=== PATIENT | female | born 1965 | race Caucasian/White ===

== ENCOUNTER 2018-07-28 11:23 | Emergency (ER) | payer MEDICARE, MEDICAID ==
[~2018-07-28] VITALS: Ht 170.2 cm; Wt 95.0 kg
--- NOTE | 2018-07-28 14:01 | NUR ---
Patient taken in bed to CT with records management technician.
--- NOTE | 2018-07-28 14:23 | NUR ---
pt returns from ct
[2018-07-28 17:55] LABS: BASOPHILS % (AUTO) 0.2 % (0-1); EOSINOPHILS # (AUTO) 0.2 X10'3 (0-0.9); LYMPHOCYTES % (AUTO) 32.1 % (21-51); MONOCYTES # (AUTO) 0.8 X10'3 (0-0.9)
[2018-07-28 17:56] LABS: EOSINOPHILS % (AUTO) 1.9 % (0-6); HEMATOCRIT 33.9 % (35.0-45.0); HEMOGLOBIN 11.3 g/dl (12.0-16.0); LYMPHOCYTES # (AUTO) 3.1 X10'3 (1.1-4.8); MEAN CORPUSCULAR HEMOGLOBIN 29.2 PG (27.0-31.0); MEAN CORPUSCULAR HGB CONC 33.2 g/dL (33.0-36.5); MEAN CORPUSCULAR VOLUME 87.8 FL (78-98); MEAN PLATELET VOLUME 6.7 FL (7.4-10.4); MONOCYTES % (AUTO) 8.4 % (2-12); NEUTROPHILS # (AUTO) 5.6 X10'3 (1.8-7.7); NEUTROPHILS % (AUTO) 57.4 % (42-75); PLATELET COUNT 583 X10'3 (140-440); RED BLOOD COUNT 3.86 X10'6 (4.20-5.60); RED CELL DISTRIBUTION WIDTH 16.9 % (11.5-14.5); WHITE BLOOD COUNT 9.7 X10'3 (4.5-11.0)
[2018-07-28 18:07] LABS: ALANINE AMINOTRANSFERASE 10 U/L (12-78); ALBUMIN 1.3 G/DL (3.4-5.0); ALBUMIN/GLOBULIN RATIO 0.3 (1.1-1.5); ALKALINE PHOSPHATASE 88 IU/L (46-116); ANION GAP 7 (8-16); ASPARTATE AMINO TRANSFERASE 25 U/L (10-37); BILIRUBIN,TOTAL 0.4 MG/DL (0.1-1.0); BLOOD UREA NITROGEN 12 MG/DL (7-18); BUN/CREATININE RATIO 17.6 (6.6-38.0); CALCIUM 8.8 MG/DL (8.5-10.1); CHLORIDE 105 MMOL/L (99-107); CREATININE 0.68 MG/DL (0.40-0.90); GLUCOSE 80 MG/DL (70-104); POTASSIUM 3.3 MMOL/L (3.5-5.1); SODIUM 139 MMOL/L (135-145); TOTAL CARBON DIOXIDE 27.5 MMOL/L (24-32); TOTAL PROTEIN 5.9 G/DL (6.4-8.2); eGFR > 90 ML/MIN
[2018-07-28] MEDS ORDERED: LIDOcaine 1% w/epiNEPHrine 1:200,000 30ml vial IM ONE (18:20)
[2018-07-28] MEDS ORDERED: LEVO500T89 PO (19:48)
[2018-07-28] MEDS ORDERED: levoFLOXACIN 250mg tablet PO ONE (19:55)
[2018-07-28 20:52] VITALS: BP 115/77
== END 2018-07-28 20:57 | disposition home or self-care (01) ==
LOC: ER 11:24
DX: S01.01XA Laceration without foreign body of scalp, initial encounter (principal); R18.8 Other ascites; L97.911 Non-pressure chronic ulcer of unspecified part of right lower leg limited to breakdown of skin; L97.921 Non-pressure chronic ulcer of unspecified part of left lower leg limited to breakdown of skin; Z79.899 Other long term (current) drug therapy; W06.XXXA Fall from bed, initial encounter; Y93.89 Activity, other specified; Y92.89 Other specified places as the place of occurrence of the external cause; Y99.9 Unspecified external cause status
CPT/HCPCS: 12001; 36415; 70450; 80053; 85025; 99285; J3490; 96372

== ENCOUNTER 2018-10-23 14:58 | Inpatient (IN) | payer MEDICARE, MEDICAID ==
[~2018-10-23] VITALS: Ht 170.2 cm; Wt 58.6 kg
--- NOTE | 2018-10-23 16:00 | NUR ---
PRESSURE ULCER PRESENT TO THE RIGHT INNER ANKLE
[2018-10-23] MEDS ORDERED: furosemide 10 MG/1 ML 10ml inj IV ONE (16:05)
[2018-10-23 16:40] LABS: BASOPHILS % (AUTO) 0.2 % (0-1); EOSINOPHILS % (AUTO) 0 % (0-6); HEMATOCRIT 41.7 % (35.0-45.0); HEMOGLOBIN 13.7 g/dl (12.0-16.0); LYMPHOCYTES # (AUTO) 0.6 X10'3 (1.1-4.8); MEAN CORPUSCULAR HGB CONC 32.8 g/dL (33.0-36.5); MEAN CORPUSCULAR VOLUME 85.2 FL (78-98); MEAN PLATELET VOLUME 6.9 FL (7.4-10.4); MONOCYTES # (AUTO) 0.1 X10'3 (0-0.9); MONOCYTES % (AUTO) 1.6 % (2-12); NEUTROPHILS # (AUTO) 8.2 X10'3 (1.8-7.7); NEUTROPHILS % (AUTO) 91.2 % (42-75); PLATELET COUNT 544 X10'3 (140-440); RED CELL DISTRIBUTION WIDTH 16.8 % (11.5-14.5)
[2018-10-23 16:55] LABS: ALANINE AMINOTRANSFERASE 11 U/L (12-78); ALBUMIN 1.4 G/DL (3.4-5.0); ALBUMIN/GLOBULIN RATIO 0.3 (1.1-1.5); ALKALINE PHOSPHATASE 100 IU/L (46-116); ANION GAP 9 (8-16); ASPARTATE AMINO TRANSFERASE 25 U/L (10-37); BILIRUBIN,TOTAL 0.4 MG/DL (0.1-1.0); BLOOD UREA NITROGEN 13 MG/DL (7-18); BUN/CREATININE RATIO 10.4 (6.6-38.0); CALCIUM 8.5 MG/DL (8.5-10.1); CHLORIDE 97 MMOL/L (99-107); CREATININE 1.25 MG/DL (0.40-0.90); GLUCOSE 86 MG/DL (70-104); POTASSIUM 4.4 MMOL/L (3.5-5.1); SODIUM 130 MMOL/L (135-145); TOTAL CARBON DIOXIDE 23.7 MMOL/L (24-32); TOTAL PROTEIN 6.4 G/DL (6.4-8.2); eGFR 45 ML/MIN
[2018-10-23 17:00] LABS: LACTIC SEPSIS 3.1 MMOL/L (0.4-2.0)
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
[2018-10-23 17:13] LABS: CLARITY,URINE CLOUDY (Clear); COLOR,URINE AMBER (Yellow); GLUCOSE, URINE NEGATIVE (Neg); KETONES,URINE TRACE mg/dl (Neg); LEUKOCYTE ESTERASE ,URINE TRACE (Neg); NITRITES, URINE POSITIVE (Neg); OCCULT BLOOD,URINE NEGATIVE (Neg); PH,URINE 5.5 (4.8-8.0); PROTEIN,URINE TRACE mg/dl (Neg)
[2018-10-23 17:15] LABS: UA COLLECTION TYPE STRAIGHT CATH
[2018-10-23 17:25] LABS: PLATELET ESTIMATE INCREASED; TOTAL CELLS COUNTED 100
[2018-10-23 17:26] LABS: ANISOCYTOSIS 1+
[2018-10-23 17:27] LABS: TOXIC VACUOLATION 1+
[2018-10-23 17:29] LABS: SQUAMOUS EPITHELIAL CELL,UR MANY /LPF (FEW)
[2018-10-23 17:30] LABS: COARSE GRANULAR CAST 0-3 /LPF (NEGATIVE)
[2018-10-23 17:32] LABS: BACTERIA,URINE 4+ /HPF (Neg); MUCUS STRANDS NONE SEEN /LPF (Neg); RBC,URINE 0-2 /HPF (0-2); TRANSITIONAL EPI CELLS,URINE FEW /HPF
[2018-10-23 17:33] LABS: CAL OXALATE CRYSTALS 1+ /HPF (NEGATIVE); RENAL CELLS, URINE FEW /HPF
[2018-10-23] MEDS ORDERED: vancomycin/NS 1 GM ADD-VANTAGE 250 ML IV ONE (17:35)
[2018-10-23] MEDS ORDERED: piperacillin/tazo 3.375gm/50ml 50 ML IV ONE (17:35)
[2018-10-23 17:39] LABS: AMMONIA < 10 UMOL/L (11-32)
[2018-10-23] MEDS ORDERED: morphine 4 MG/ML inj SYRINge IV ONE (18:25)
[2018-10-23] MEDS ORDERED: normal saline 1000ML IV soln IVB ONE ×2 (18:25→19:55)
[2018-10-23] MEDS ORDERED: ondansetron/PF 4mg/2ml inj IV ONE (18:25)
[2018-10-23] MEDS ORDERED: diltiazem 5mg/ml 5ml inj. IV ONE (19:10)
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
--- NOTE | 2018-10-23 20:02 | NUR ---
After consulting primary RN, Cardizem not administered at this time due to pt BP of 99/68.
[2018-10-23] MEDS ORDERED: acetaminophen 325mg tablet PO PRN (20:05)
[2018-10-23] MEDS ORDERED: mag hydrox/Alum hydrox/simeth 30ml oral suspension PO PRN (20:05)
[2018-10-23 20:33] LABS: ETHANOL < 0.010 GM/DL (0.0-0.010)
--- NOTE | 2018-10-23 20:53 | NUR ---
Spoke with KEILY Loja and Hospitalist Janene regarding IV Cardizem order (see emar). Updated on hr 114, BP 108/80. Hold Cardizem IVP at this time.
[2018-10-23 21:15] VITALS: BP 100/69
[2018-10-23 23:00] VITALS: BP 99/69
[2018-10-24] VITALS (23 sets, daily range): BP systolic 71–117; BP diastolic 42–84
[2018-10-24 05:46] LABS: BASOPHILS % (AUTO) 0.4 % (0-1); EOSINOPHILS % (AUTO) 0 % (0-6); HEMATOCRIT 38.4 % (35.0-45.0); HEMOGLOBIN 12.6 g/dl (12.0-16.0); LYMPHOCYTES # (AUTO) 0.8 X10'3 (1.1-4.8); LYMPHOCYTES % (AUTO) 7.8 % (21-51); MEAN CORPUSCULAR HEMOGLOBIN 28.3 PG (27.0-31.0); MEAN CORPUSCULAR HGB CONC 32.9 g/dL (33.0-36.5); MEAN CORPUSCULAR VOLUME 86.1 FL (78-98); MEAN PLATELET VOLUME 7.5 FL (7.4-10.4); MONOCYTES # (AUTO) 0.3 X10'3 (0-0.9); MONOCYTES % (AUTO) 2.5 % (2-12); NEUTROPHILS # (AUTO) 9.3 X10'3 (1.8-7.7); NEUTROPHILS % (AUTO) 89.3 % (42-75); PLATELET COUNT 463 X10'3 (140-440); RED BLOOD COUNT 4.46 X10'6 (4.20-5.60); RED CELL DISTRIBUTION WIDTH 17.3 % (11.5-14.5); WHITE BLOOD COUNT 10.4 X10'3 (4.5-11.0)
--- NOTE | 2018-10-24 06:20 | NUR ---
Patient in room PCU 3026. I have received report from CHANCE Amor and had the opportunity to ask questions and assume patient care. Pt is sleeping. Will continue to monitor.
[2018-10-24 06:26] LABS: ALANINE AMINOTRANSFERASE 11 U/L (12-78); ALBUMIN 1.2 G/DL (3.4-5.0); ALBUMIN/GLOBULIN RATIO 0.3 (1.1-1.5); ALKALINE PHOSPHATASE 86 IU/L (46-116); ANION GAP 8 (8-16); ASPARTATE AMINO TRANSFERASE 35 U/L (10-37); BILIRUBIN,TOTAL 0.3 MG/DL (0.1-1.0); BLOOD UREA NITROGEN 15 MG/DL (7-18); BUN/CREATININE RATIO 10.3 (6.6-38.0); CALCIUM 8.7 MG/DL (8.5-10.1); CHLORIDE 98 MMOL/L (99-107); CREATININE 1.45 MG/DL (0.40-0.90); GLUCOSE 91 MG/DL (70-104); POTASSIUM 4.9 MMOL/L (3.5-5.1); SODIUM 130 MMOL/L (135-145); TOTAL CARBON DIOXIDE 23.6 MMOL/L (24-32); TOTAL PROTEIN 5.8 G/DL (6.4-8.2); eGFR 38 ML/MIN
[2018-10-24] MEDS: enoxaparin 30mg/0.3ml syringe SUBCUT SCH ×2 (08:00→08:06)
[2018-10-24] MEDS ORDERED: vancomycin/NS 1 GM ADD-VANTAGE 250 ML IV SCH (08:00)
[2018-10-24] MEDS: CefTRIAXone/D5W-Rocephin 1gm 50 ML IV SCH (08:04)
[2018-10-24] MEDS ORDERED: NO HOME MEDS (08:40)
[2018-10-24] MEDS: VANCOmycin 1250MG/NS 250ml Bag 250 ML IV SCH ×2 (09:37→20:57)
--- NOTE | 2018-10-24 10:27 | NUR ---
Paracentesis canceled by Dr Mercedes stating that patient is not stable enough at this time for Paracentesis Nursing staff informed
--- NOTE | 2018-10-24 10:41 | NUR ---
PRESSURE ULCER EDUCATION: DEFINITION: A pressure ulcer is an area of skin that breaks down when you stay in one position too long. The constant pressure against the skin reduces the blood flow to that area and the affected tissue dies. CAUSES: "Being bedridden or in a wheelchair "Fragile skin "Having a chronic condition, such as diabetes or vascular disease "Inability to move certain parts of your body without assistance "Older age "Incontinence of urine or stool SYMPTOMS: "A reddened area that DOES NOT turn white when pressed on - this can be the beginning of a pressure ulcer "A blister, deep sore or a crater - these can be advanced pressure ulcers FIRST AID: "Relieve the pressure on this area "Keep the area clean and dry "Call your primary doctor if you see any of the above symptoms "DO NOT massage the area "DO NOT use a donut shaped or ring shaped pillow- these actually interfere with the blood flow and cause complications PREVENTION: "Check for pressure ulcers everyday "Change position at least every two hours to relieve pressure "Use items that help relieve pressure- pillows, sheepskin, foam padding, and powders. "Keep skin clean and dry "Eat healthy well balanced meals "Exercise daily IF YOU SEE ANY OF THESE SYMPTOMS WHILE IN THE HOSPITAL - TELL YOUR NURSE IMMEDIATELY. IF YOU SEE ANY OF THESE SYMPTOMS WHILE AT HOME OR HAVE ANY QUESTIONS OR CONCERNS ABOUT PRESSURE ULCERS - CALL YOUR PRIMARY DOCTOR IMMEDIATELY. WOUND INFECTION EDUCATION PROVIDED BY WOUND CARE 1. Patient instructed to call their primary doctor, or go the ED immediately if any of the following symptoms occur: * Increased pain in wound * Increase in drainage from the wound * Redness in the skin surrounding the wound * Warmth in the skin surrounding the wound * Bleeding from the wound * Temperature of 101 or greater 2. If any of these occur while in the hospital tell a nurse immediately. Addendum: 10/24/18 at 1042 by Shannan Viramontes RN Amended: Links added.
--- NOTE | 2018-10-24 10:56 | NUR ---
Sent to Dr Mercedes PAGER ID: [phone] MESSAGE: RE: Saray Ferraro [id number]. Pt c/o pain. Only PRN ordered is Tylenol. Please advise. -Maame [phone]
[2018-10-24] MEDS: acetaminophen 325mg tablet PO PRN ×2 (11:46→22:12)
--- NOTE | 2018-10-24 12:31 | NUR ---
Sent to Dr Mercedes PAGER ID: [phone] MESSAGE: RE: Saray Sauer [id number]. FYI: BP 88/60. Asymptomatic. Getting Echo right now. -Maame [phone]
[2018-10-24] MEDS ORDERED: normal saline 1000ml 1,000 ML IV SCH (12:50)
[2018-10-24] MEDS ORDERED: albumin (Human) 5% 250ml 250 ML IV ONE ×2 (12:50→22:55)
[2018-10-24] MEDS ORDERED: albumin (human) 25% 100 ML IV solution IV ONE ×4 (13:05→17:20)
[2018-10-24] MEDS: albumin (human) 25% 100 ML IV solution IV SCH ×2 (14:00→21:22)
--- NOTE | 2018-10-24 14:41 | NUR ---
Sent to Dr Mercedes PAGER ID: [phone] MESSAGE: RE: Saray Ferraro [id number]. Do you want both bottles of albumin, or one now and one after 6 hours? Please call for clarification. -Maame [phone]
--- NOTE | 2018-10-24 15:07 | NUR ---
Malnutrition consult: Pt admit w/ increased SOB, sepsis, L leg cellulitis noted to have large ascites and hx etoh cirrhosis. Sober [address] MD note[address] shows possible cholelithiasis. Rob 12 w/ healing coccyx wound and RLE calf wound cellulitis noted. Pt advanced to regular diet w/ PO 25% avg first meal today. RD attempts to see pt x2 but first visit pt getting echo and second visit RN's working w/ pt during hypotension period. Pt will need high protein ed regardless of malnutrition criteria prior to d/c. At this time pt has BLE +3 edema, mild weakness, scaled wt 220# healthy wt, and only one meal PO so far this admit. Malnutrition trigger pending further PO hx and RD visit once stable this admit for more accurate hx. Will continue to monitor. Rec: 1. continue regular diet 2. monitor for ONS needs 3. high protein ed prior to d/c 4. MVI for wound healing 5. routine bowel care Addendum: 10/24/18 at [address] Amended: Links added.
--- NOTE | 2018-10-24 16:35 | NUR ---
Sent to Dr Mercedes PAGER ID: [phone] MESSAGE: RE: Saray Ferraro [id number]. CRITICAL RESULTS: anaerobic blood specimen drawn from Right arm 2 days ago is positive for gram + cocci in pairs and chains. -Maame [phone]
[2018-10-24] MEDS ORDERED: morphine 2 MG/ML inj. syringe IV ONE (17:15)
[2018-10-24] MEDS: midodrine 5mg tablet PO SCH ×2 (17:24→23:34)
--- NOTE | 2018-10-24 18:00 | NUR ---
Patient in room PCU 3012. I have received report from Maame FLETCHER and had the opportunity to ask questions and assume patient care.
[2018-10-24 18:22] LABS: BFAPPEAR CLEAR
[2018-10-24 18:23] LABS: BF MESOTHELIAL CELLS OCCASIONAL; BF RBC COUNT 81 /CU MM; BF WBC COUNT 41 /CU MM (0-1000); BFCOLOR YELLOW; BFVOLUME 60 ML; LYMPHOCYTES,BODY FLUID 82 %; MONOCYTES,BODY FLUID 18 %; NEUTROPHILS,BODY FLUID 0 %
[2018-10-24 18:24] LABS: OTHER CELLS,BODY FLUID MACROPHAGES
--- NOTE | 2018-10-24 18:30 | NUR ---
Patient in room PCU 3012. I have received report from Maame FLETCHER and had the opportunity to ask questions and assume patient care with Tracy FLETCHER.
--- NOTE | 2018-10-24 18:46 | NUR ---
PAGER ID: [phone] MESSAGE: [phone] Saray Ferraro. Still has 2 bottles of albumin to give and an order for Q6 Albumin starting today at 1999, would you like to change the time? Tracy FLETCHER 0310
--- NOTE | 2018-10-24 18:49 | NUR ---
Problems reprioritized. Patient report given, questions answered & plan of care reviewed with CHANCE Leal and CHANCE Molina.
[2018-10-24] MEDS: lactobacillus rhamnosus 10,000 MMU CELLS/CAPSULE PO SCH (19:34)
[2018-10-24] MEDS: rifaximin 550mg tablet PO SCH (19:34)
--- NOTE | 2018-10-24 21:17 | NUR ---
Spoke with April re SBP in the 70s. orders to give albumin now that we were going to give in 6 hours.
[2018-10-24 22:06] LABS: ALANINE AMINOTRANSFERASE 11 U/L (12-78); ALBUMIN 2.6 G/DL (3.4-5.0); ALBUMIN/GLOBULIN RATIO 1.1 (1.1-1.5); ALKALINE PHOSPHATASE 50 IU/L (46-116); ANION GAP 4 (8-16); ASPARTATE AMINO TRANSFERASE 18 U/L (10-37); BILIRUBIN,TOTAL 0.4 MG/DL (0.1-1.0); BLOOD UREA NITROGEN 18 MG/DL (7-18); BUN/CREATININE RATIO 11.5 (6.6-38.0); CALCIUM 8.2 MG/DL (8.5-10.1); CHLORIDE 99 MMOL/L (99-107); CREATININE 1.56 MG/DL (0.40-0.90); GLUCOSE 116 MG/DL (70-104); POTASSIUM 4.4 MMOL/L (3.5-5.1); SODIUM 129 MMOL/L (135-145); TOTAL CARBON DIOXIDE 25.7 MMOL/L (24-32); eGFR 35 ML/MIN
--- NOTE | 2018-10-24 22:53 | NUR ---
ROSELINE April Britany notified about blood pressure in the 70s. Communicated about giving another albumin dose and will continue to monitor and contact MP as needed.
[2018-10-25] VITALS (16 sets, daily range): BP systolic 70–94; BP diastolic 42–64
[2018-10-25] MEDS: albumin (human) 25% 100 ML IV solution IV SCH ×4 (02:00→19:43)
--- NOTE | 2018-10-25 03:17 | NUR ---
Notified MP Britany about blood pressure dropping into the SBPs of 70s, left a message and now waiting for a call back.
--- NOTE | 2018-10-25 03:21 | NUR ---
ROSELINE Garg called back stating upper SBP of 70s is okay. Will continue to monitor the patient. Addendum: 10/25/18 at 0325 by Tracy Naylor RN For clarification, notify when patient is in low SBP 70s and symptomatic.
[2018-10-25] MEDS: acetaminophen 325mg tablet PO PRN (04:27)
[2018-10-25 05:22] LABS: BASOPHILS % (AUTO) 0.3 % (0-1); EOSINOPHILS % (AUTO) 0.4 % (0-6); HEMATOCRIT 25.7 % (35.0-45.0); HEMOGLOBIN 8.8 g/dl (12.0-16.0); LYMPHOCYTES # (AUTO) 0.7 X10'3 (1.1-4.8); LYMPHOCYTES % (AUTO) 7.9 % (21-51); MEAN CORPUSCULAR HEMOGLOBIN 28.8 PG (27.0-31.0); MEAN CORPUSCULAR HGB CONC 34.1 g/dL (33.0-36.5); MEAN CORPUSCULAR VOLUME 84.6 FL (78-98); MEAN PLATELET VOLUME 7.4 FL (7.4-10.4); MONOCYTES # (AUTO) 0.2 X10'3 (0-0.9); MONOCYTES % (AUTO) 2.4 % (2-12); NEUTROPHILS # (AUTO) 7.6 X10'3 (1.8-7.7); PLATELET COUNT 264 X10'3 (140-440); RED BLOOD COUNT 3.04 X10'6 (4.20-5.60); WHITE BLOOD COUNT 8.5 X10'3 (4.5-11.0)
[2018-10-25 05:53] LABS: ALANINE AMINOTRANSFERASE 9 U/L (12-78); ALBUMIN 2.7 G/DL (3.4-5.0); ALBUMIN/GLOBULIN RATIO 1.4 (1.1-1.5); ALKALINE PHOSPHATASE 41 IU/L (46-116); ANION GAP 8 (8-16); ASPARTATE AMINO TRANSFERASE 16 U/L (10-37); BILIRUBIN,TOTAL 0.4 MG/DL (0.1-1.0); BLOOD UREA NITROGEN 19 MG/DL (7-18); BUN/CREATININE RATIO 12.8 (6.6-38.0); CALCIUM 8.2 MG/DL (8.5-10.1); CHLORIDE 99 MMOL/L (99-107); CREATININE 1.49 MG/DL (0.40-0.90); GLUCOSE 92 MG/DL (70-104); POTASSIUM 4.1 MMOL/L (3.5-5.1); SODIUM 131 MMOL/L (135-145); TOTAL CARBON DIOXIDE 24.5 MMOL/L (24-32); TOTAL PROTEIN 4.7 G/DL (6.4-8.2); eGFR 37 ML/MIN
--- NOTE | 2018-10-25 06:09 | NUR ---
Problems reprioritized. Patient report given, questions answered & plan of care reviewed with Maame RN.
--- NOTE | 2018-10-25 06:10 | NUR ---
Problems reprioritized. Patient report given, questions answered & plan of care reviewed with Maame RN.
--- NOTE | 2018-10-25 06:10 | NUR ---
[place] Documentation: I have reviewed and agree with all interventions, assessments performed and documented by Tracy Gatica.
--- NOTE | 2018-10-25 06:36 | NUR ---
Patient in room PCU 3012. I have received report from Tracy RN and CHANCE Leal and had the opportunity to ask questions and assume patient care. Pt is sleeping. Will continue to monitor.
[2018-10-25] MEDS: midodrine 5mg tablet PO SCH ×3 (07:50→21:23)
[2018-10-25] MEDS: CefTRIAXone/D5W-Rocephin 1gm 50 ML IV SCH (07:50)
[2018-10-25] MEDS: lactobacillus rhamnosus 10,000 MMU CELLS/CAPSULE PO SCH ×2 (07:50→19:47)
[2018-10-25] MEDS: enoxaparin 30mg/0.3ml syringe SUBCUT SCH (07:51)
[2018-10-25] MEDS: VANCOmycin 1250MG/NS 250ml Bag 250 ML IV SCH ×2 (07:53→21:14)
[2018-10-25] MEDS: rifaximin 550mg tablet PO SCH ×2 (07:53→21:23)
[2018-10-25] MEDS ORDERED: albumin (Human) 5% 250ml 250 ML IV ONE (09:35)
[2018-10-25] MEDS ORDERED: pneumococcal 23-VAL P-sac vacc 25 mcg/0.5ml vial IMVAC ONE (10:00)
--- NOTE | 2018-10-25 10:58 | NUR ---
F/u: Pt has severe weakness and severe edema currently in addition to low P0 25% avg meals so far this admit. Qualifies for severe malnutrition at this time; MD notified. Pt remains hypotensive and possible ICU admit if does not improve per MD note. High protein ed deferred until pt more stable. Ensure Enlive TIDWM was added for additional protein/kcal needs; MD and dietary notified. Will continue to monitor. Rec: 1. continue regular diet 2. ensure enlive TIDWM 3. high protein ed prior to d/c once stable 4. MVI for wound healing 5. routine bowel care Addendum: 10/25/18 at [address] Amended: Links added. Addendum: 10/25/18 at [address] F/u: Pt has severe weakness and severe edema currently in addition to low P0 25% avg meals so far this admit. Qualifies for severe malnutrition at this time; MD notified. Pt remains hypotensive and possible ICU admit if does not improve per MD note. High protein ed deferred until pt more stable. Ensure Enlive TIDWM was added for additional protein/kcal needs; MD and dietary notified. Will continue to monitor. Rec: 1. continue regular diet 2. ensure enlive TIDWM 3. high protein/malnut ed prior to d/c once stable 4. MVI for wound healing 5. routine bowel care
[2018-10-25] MEDS: lactose-reduced food (Ensure Enlive) - 237ml bottle PO SCH ×2 (13:00→18:00)
--- NOTE | 2018-10-25 14:03 | NUR ---
Sent to Dr Mercedes PAGER ID: [phone] MESSAGE: RE: Saray Ferraro [id number]. Can we please get a child protective services social worker consult order? She does not want to return to her previous living situation. -Maame [phone]
--- NOTE | 2018-10-25 18:33 | NUR ---
Problems reprioritized. Patient report given, questions answered & plan of care reviewed with CHANCE Lujan.
[2018-10-25] MEDS ORDERED: VANCOMYCIN LEVEL IV ONE (19:30)
--- NOTE | 2018-10-25 23:49 | NUR ---
Patient in room PCU 3012. I have received report from Maame FLETCHER and had the opportunity to ask questions and assume patient care. Checked on patient, she is in bed, talking to her son on the phone. Will continue to monitor.
[2018-10-26] MEDS: albumin (human) 25% 100 ML IV solution IV SCH ×4 (01:50→20:19)
[2018-10-26 02:00] VITALS: BP 90/65
[2018-10-26] MEDS: acetaminophen 325mg tablet PO PRN ×2 (02:05→15:07)
--- NOTE | 2018-10-26 02:18 | NUR ---
Left message with wound care requesting air bed. Turning patient qh and it is not helping with the pain on her coccyx.
[2018-10-26 05:27] LABS: BASOPHILS % (AUTO) 0.6 % (0-1); EOSINOPHILS # (AUTO) 0.1 X10'3 (0-0.9); EOSINOPHILS % (AUTO) 1.4 % (0-6); HEMATOCRIT 27.9 % (35.0-45.0); HEMOGLOBIN 9.5 g/dl (12.0-16.0); LYMPHOCYTES # (AUTO) 0.6 X10'3 (1.1-4.8); LYMPHOCYTES % (AUTO) 7.8 % (21-51); MEAN CORPUSCULAR HEMOGLOBIN 28.7 PG (27.0-31.0); MEAN CORPUSCULAR HGB CONC 33.9 g/dL (33.0-36.5); MEAN CORPUSCULAR VOLUME 84.8 FL (78-98); MEAN PLATELET VOLUME 8.1 FL (7.4-10.4); MONOCYTES # (AUTO) 0.3 X10'3 (0-0.9); MONOCYTES % (AUTO) 4.1 % (2-12); NEUTROPHILS # (AUTO) 6.9 X10'3 (1.8-7.7); NEUTROPHILS % (AUTO) 86.1 % (42-75); PLATELET COUNT 194 X10'3 (140-440); RED BLOOD COUNT 3.29 X10'6 (4.20-5.60); RED CELL DISTRIBUTION WIDTH 16.7 % (11.5-14.5)
[2018-10-26 05:49] LABS: ALANINE AMINOTRANSFERASE 8 U/L (12-78); ALBUMIN 2.9 G/DL (3.4-5.0); ALBUMIN/GLOBULIN RATIO 1.5 (1.1-1.5); ALKALINE PHOSPHATASE 89 IU/L (46-116); ANION GAP 5 (8-16); ASPARTATE AMINO TRANSFERASE 12 U/L (10-37); BILIRUBIN,TOTAL 0.5 MG/DL (0.1-1.0); BLOOD UREA NITROGEN 18 MG/DL (7-18); BUN/CREATININE RATIO 14.2 (6.6-38.0); CALCIUM 8.8 MG/DL (8.5-10.1); CHLORIDE 101 MMOL/L (99-107); CREATININE 1.27 MG/DL (0.40-0.90); GLUCOSE 85 MG/DL (70-104); POTASSIUM 3.6 MMOL/L (3.5-5.1); SODIUM 131 MMOL/L (135-145); TOTAL CARBON DIOXIDE 25.5 MMOL/L (24-32); TOTAL PROTEIN 4.8 G/DL (6.4-8.2); eGFR 44 ML/MIN
--- NOTE | 2018-10-26 06:28 | NUR ---
Problems reprioritized. Patient report given, questions answered & plan of care reviewed with Geraldine FLETCHER and Marvin FLETCHER.
--- NOTE | 2018-10-26 06:29 | NUR ---
Patient in room PCU 3012. I have received report from Le FLETCHER and had the opportunity to ask questions and assume patient care.
[2018-10-26 07:00] VITALS: BP 87/64
[2018-10-26] MEDS ORDERED: VANCOMYCIN LEVEL IV ONE (07:30)
[2018-10-26] MEDS: lactose-reduced food (Ensure Enlive) - 237ml bottle PO SCH ×3 (08:00→18:00)
[2018-10-26] MEDS: enoxaparin 30mg/0.3ml syringe SUBCUT SCH (08:38)
[2018-10-26] MEDS: midodrine 5mg tablet PO SCH ×3 (08:39→23:18)
[2018-10-26] MEDS: CefTRIAXone/D5W-Rocephin 1gm 50 ML IV SCH (08:41)
[2018-10-26] MEDS: lactobacillus rhamnosus 10,000 MMU CELLS/CAPSULE PO SCH ×2 (08:41→20:17)
[2018-10-26] MEDS: rifaximin 550mg tablet PO SCH ×2 (08:41→20:17)
[2018-10-26 11:00] VITALS: BP 100/71
[2018-10-26 15:00] VITALS: BP 98/70
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
[2018-10-26 18:18] VITALS: BP 103/70
--- NOTE | 2018-10-26 18:25 | NUR ---
Patient in room PCU 3012. I have received report from Geraldine and had the opportunity to ask questions and assume patient care.
--- NOTE | 2018-10-26 18:27 | NUR ---
Problems reprioritized. Patient report given, questions answered & plan of care reviewed with Bradley FLETCHER.
[2018-10-26] MEDS ORDERED: vancomycin inj. 750 MG in normal saline 250ml IV soln 250 ML IV SCH (20:00)
[2018-10-26 22:00] VITALS: BP 107/77
[2018-10-27] VITALS (8 sets, daily range): BP systolic 102–118; BP diastolic 71–87
[2018-10-27] MEDS: albumin (human) 25% 100 ML IV solution IV SCH ×3 (01:31→20:56)
[2018-10-27] MEDS: acetaminophen 325mg tablet PO PRN ×2 (03:30→13:52)
[2018-10-27 06:14] LABS: BASOPHILS % (AUTO) 0.2 % (0-1); EOSINOPHILS % (AUTO) 0.3 % (0-6); HEMATOCRIT 29.7 % (35.0-45.0); HEMOGLOBIN 9.9 g/dl (12.0-16.0); LYMPHOCYTES # (AUTO) 0.6 X10'3 (1.1-4.8); MEAN CORPUSCULAR HEMOGLOBIN 28.1 PG (27.0-31.0); MEAN CORPUSCULAR HGB CONC 33.4 g/dL (33.0-36.5); MEAN CORPUSCULAR VOLUME 84.1 FL (78-98); MEAN PLATELET VOLUME 8.3 FL (7.4-10.4); MONOCYTES # (AUTO) 0.8 X10'3 (0-0.9); MONOCYTES % (AUTO) 7.5 % (2-12); PLATELET COUNT 165 X10'3 (140-440); RED BLOOD COUNT 3.52 X10'6 (4.20-5.60); RED CELL DISTRIBUTION WIDTH 16.8 % (11.5-14.5); WHITE BLOOD COUNT 10.4 X10'3 (4.5-11.0)
--- NOTE | 2018-10-27 06:29 | NUR ---
Problems reprioritized. Patient report given, questions answered & plan of care reviewed with
[2018-10-27 06:34] LABS: ALANINE AMINOTRANSFERASE 12 U/L (12-78); ALBUMIN/GLOBULIN RATIO 1.5 (1.1-1.5); ALKALINE PHOSPHATASE 138 IU/L (46-116); ANION GAP 7 (8-16); ASPARTATE AMINO TRANSFERASE 21 U/L (10-37); BILIRUBIN,TOTAL 0.5 MG/DL (0.1-1.0); BLOOD UREA NITROGEN 12 MG/DL (7-18); BUN/CREATININE RATIO 11.9 (6.6-38.0); CALCIUM 8.4 MG/DL (8.5-10.1); CHLORIDE 104 MMOL/L (99-107); CREATININE 1.01 MG/DL (0.40-0.90); GLUCOSE 104 MG/DL (70-104); POTASSIUM 3.5 MMOL/L (3.5-5.1); SODIUM 135 MMOL/L (135-145); TOTAL CARBON DIOXIDE 24.1 MMOL/L (24-32); eGFR 58 ML/MIN
--- NOTE | 2018-10-27 06:43 | NUR ---
Patient in room PCU 3012. I have received report from Bradley FLETCHER and had the opportunity to ask questions and assume patient care.
[2018-10-27] MEDS: CefTRIAXone/D5W-Rocephin 1gm 50 ML IV SCH (07:30)
[2018-10-27] MEDS: midodrine 5mg tablet PO SCH ×2 (07:30→16:40)
[2018-10-27] MEDS: rifaximin 550mg tablet PO SCH ×2 (07:30→20:58)
[2018-10-27] MEDS: lactobacillus rhamnosus 10,000 MMU CELLS/CAPSULE PO SCH ×2 (07:30→20:57)
[2018-10-27] MEDS: enoxaparin 30mg/0.3ml syringe SUBCUT SCH (07:31)
[2018-10-27] MEDS: lactose-reduced food (Ensure Enlive) - 237ml bottle PO SCH ×3 (08:00→18:00)
[2018-10-27] MEDS ORDERED: albumin (human) 25% 100 ML IV solution IV ONE (15:15)
[2018-10-27] MEDS: HYDROmorphone inj. 0.5 MG/0.5 ML DISP.SYRIN IV PRN ×2 (16:45→22:15)
--- NOTE | 2018-10-27 18:30 | NUR ---
Patient in room PCU 3012. I have received report from CHANCE Ramires and had the opportunity to ask questions and assume patient care.
--- NOTE | 2018-10-27 18:30 | NUR ---
Problems reprioritized. Patient report given, questions answered & plan of care reviewed with CHANCE Ramires. Addendum: 10/28/18 at 0704 by Jazzy Alejandro RN Problems reprioritized. Patient report given, questions answered & plan of care reviewed with CHANCE Ramires.
[2018-10-28] MEDS: midodrine 5mg tablet PO SCH ×3 (00:47→15:26)
[2018-10-28 03:00] VITALS: BP 101/71
[2018-10-28 06:00] VITALS: BP 106/77
[2018-10-28] MEDS ORDERED: VANCOMYCIN LEVEL IV ONE (07:30)
[2018-10-28] MEDS: lactose-reduced food (Ensure Enlive) - 237ml bottle PO SCH ×3 (08:22→18:00)
[2018-10-28] MEDS: HYDROmorphone inj. 0.5 MG/0.5 ML DISP.SYRIN IV PRN ×3 (08:24→19:29)
[2018-10-28] MEDS: lactobacillus rhamnosus 10,000 MMU CELLS/CAPSULE PO SCH ×2 (08:25→19:28)
[2018-10-28] MEDS: albumin (human) 25% 100 ML IV solution IV SCH (08:25)
[2018-10-28] MEDS: CefTRIAXone/D5W-Rocephin 1gm 50 ML IV SCH (08:25)
[2018-10-28] MEDS: enoxaparin 30mg/0.3ml syringe SUBCUT SCH (08:26)
[2018-10-28] MEDS: rifaximin 550mg tablet PO SCH ×2 (08:26→19:28)
[2018-10-28 09:49] LABS: BASOPHILS % (AUTO) 0.3 % (0-1); EOSINOPHILS # (AUTO) 0.1 X10'3 (0-0.9); EOSINOPHILS % (AUTO) 1.3 % (0-6); HEMATOCRIT 31.3 % (35.0-45.0); HEMOGLOBIN 10.4 g/dl (12.0-16.0); LYMPHOCYTES # (AUTO) 0.7 X10'3 (1.1-4.8); LYMPHOCYTES % (AUTO) 9.6 % (21-51); MEAN CORPUSCULAR HEMOGLOBIN 28.2 PG (27.0-31.0); MEAN CORPUSCULAR HGB CONC 33.3 g/dL (33.0-36.5); MEAN CORPUSCULAR VOLUME 84.5 FL (78-98); MEAN PLATELET VOLUME 8.3 FL (7.4-10.4); MONOCYTES # (AUTO) 0.6 X10'3 (0-0.9); MONOCYTES % (AUTO) 7.3 % (2-12); NEUTROPHILS # (AUTO) 6.3 X10'3 (1.8-7.7); NEUTROPHILS % (AUTO) 81.5 % (42-75); PLATELET COUNT 168 X10'3 (140-440); RED CELL DISTRIBUTION WIDTH 16.9 % (11.5-14.5); WHITE BLOOD COUNT 7.7 X10'3 (4.5-11.0)
[2018-10-28 10:07] LABS: ALANINE AMINOTRANSFERASE 13 U/L (12-78); ALBUMIN 3.3 G/DL (3.4-5.0); ALBUMIN/GLOBULIN RATIO 1.9 (1.1-1.5); ALKALINE PHOSPHATASE 102 IU/L (46-116); ASPARTATE AMINO TRANSFERASE 19 U/L (10-37); BILIRUBIN,TOTAL 0.7 MG/DL (0.1-1.0); BLOOD UREA NITROGEN 8 MG/DL (7-18); BUN/CREATININE RATIO 11.3 (6.6-38.0); CALCIUM 7.8 MG/DL (8.5-10.1); CHLORIDE 104 MMOL/L (99-107); CREATININE 0.71 MG/DL (0.40-0.90); GLUCOSE 113 MG/DL (70-104); TOTAL CARBON DIOXIDE 26.1 MMOL/L (24-32); eGFR 86 ML/MIN
[2018-10-28 10:08] LABS: ANION GAP 9 (8-16); POTASSIUM 3.5 MMOL/L (3.5-5.1); SODIUM 139 MMOL/L (135-145)
[2018-10-28 11:00] VITALS: BP 107/77
[2018-10-28 15:00] VITALS: BP 108/74
--- NOTE | 2018-10-28 18:10 | NUR ---
Patient in room PCU 3012. I have received report from CHANCE Ramires and had the opportunity to ask questions and assume patient care.
[2018-10-28 22:00] VITALS: BP 110/76
[2018-10-29] MEDS: midodrine 5mg tablet PO SCH ×4 (00:21→23:09)
[2018-10-29 03:00] VITALS: BP 106/77
[2018-10-29] MEDS: HYDROmorphone inj. 0.5 MG/0.5 ML DISP.SYRIN IV PRN ×4 (03:32→22:09)
[2018-10-29] MEDS: magnesium hydroxide 30ml (MOM) UD suspension PO PRN (04:03)
[2018-10-29 06:00] VITALS: BP 99/71
--- NOTE | 2018-10-29 06:30 | NUR ---
Problems reprioritized. Patient report given, questions answered & plan of care reviewed with porsche larsen. Addendum: 10/29/18 at 0657 by Antonio Siu RN Patient in room [place] [address]. I have received report from PORSCHE LARSEN and had the opportunity to ask questions and assume patient care.
--- NOTE | 2018-10-29 06:53 | NUR ---
Problems reprioritized. Patient report given, questions answered & plan of care reviewed with CHANCE Camacho.
[2018-10-29 06:59] LABS: BASOPHILS % (AUTO) 0.4 % (0-1); EOSINOPHILS # (AUTO) 0.2 X10'3 (0-0.9); EOSINOPHILS % (AUTO) 3.2 % (0-6); HEMATOCRIT 34.2 % (35.0-45.0); HEMOGLOBIN 11.3 g/dl (12.0-16.0); LYMPHOCYTES # (AUTO) 1.2 X10'3 (1.1-4.8); LYMPHOCYTES % (AUTO) 22.7 % (21-51); MEAN CORPUSCULAR VOLUME 84.7 FL (78-98); MEAN PLATELET VOLUME 8.1 FL (7.4-10.4); MONOCYTES # (AUTO) 0.6 X10'3 (0-0.9); MONOCYTES % (AUTO) 10.7 % (2-12); NEUTROPHILS # (AUTO) 3.4 X10'3 (1.8-7.7); PLATELET COUNT 209 X10'3 (140-440); RED BLOOD COUNT 4.04 X10'6 (4.20-5.60); RED CELL DISTRIBUTION WIDTH 16.9 % (11.5-14.5); WHITE BLOOD COUNT 5.4 X10'3 (4.5-11.0)
[2018-10-29 07:16] LABS: ALANINE AMINOTRANSFERASE 15 U/L (12-78); ALBUMIN 2.5 G/DL (3.4-5.0); ALBUMIN/GLOBULIN RATIO 1.3 (1.1-1.5); ALKALINE PHOSPHATASE 116 IU/L (46-116); ANION GAP 4 (8-16); ASPARTATE AMINO TRANSFERASE 26 U/L (10-37); BILIRUBIN,TOTAL 0.6 MG/DL (0.1-1.0); BLOOD UREA NITROGEN 6 MG/DL (7-18); BUN/CREATININE RATIO 9.7 (6.6-38.0); CALCIUM 8.2 MG/DL (8.5-10.1); CHLORIDE 106 MMOL/L (99-107); CREATININE 0.62 MG/DL (0.40-0.90); GLUCOSE 90 MG/DL (70-104); POTASSIUM 3.8 MMOL/L (3.5-5.1); SODIUM 139 MMOL/L (135-145); TOTAL CARBON DIOXIDE 29.2 MMOL/L (24-32); TOTAL PROTEIN 4.5 G/DL (6.4-8.2); eGFR > 90 ML/MIN
[2018-10-29] MEDS: CefTRIAXone/D5W-Rocephin 1gm 50 ML IV SCH (07:59)
[2018-10-29] MEDS: rifaximin 550mg tablet PO SCH ×2 (08:00→19:53)
[2018-10-29] MEDS: lactobacillus rhamnosus 10,000 MMU CELLS/CAPSULE PO SCH ×2 (08:12→19:53)
[2018-10-29] MEDS: lactose-reduced food (Ensure Enlive) - 237ml bottle PO SCH ×3 (08:12→18:00)
[2018-10-29] MEDS: enoxaparin 30mg/0.3ml syringe SUBCUT SCH (08:14)
[2018-10-29] MEDS: traMADol 50MG tablet PO PRN (09:42)
[2018-10-29 11:00] VITALS: BP 105/73
--- NOTE | 2018-10-29 13:00 | NUR ---
In to change dressings and take wound pictures. rfused at this time, states "I would like to finish lunch first". Will check back later.
--- NOTE | 2018-10-29 14:35 | NUR ---
Continues to be in chair and still eating lunch.
[2018-10-29 15:00] VITALS: BP 114/73
--- NOTE | 2018-10-29 16:23 | NUR ---
paged Dr. Wilson PAGER ID: [phone] MESSAGE: breana arcadio [phone] tom thinks she has yeast inf/ itching burning. wants rx please
--- NOTE | 2018-10-29 16:54 | NUR ---
reassessment: Pt PO continues to be low 0-25% meals not meeting needs. No BM 6 days since 10/23 noted without routine bowel care receiving ultram and dilaudid. GARY fitzpatrick.frankie GARCIA for routine bowel care given constipation. Pt second paracentesis 10/27 -10.5L removed 3 days after 16.5L removal. Will continue to monitor for additional bowel care needs; pt food preferences continue to be honored. Rec: 1. continue regular diet 2. chocolate ensure enlive, magic cup, string cheese TIDWM 3. bariatric MVI for wound healing/taisha-en-y needs 4. routine bowel care 5. weekly wts 6. honor pt protein food preferences Addendum: 10/29/18 at [address] Amended: Links added.
[2018-10-29 18:00] VITALS: BP 115/85
--- NOTE | 2018-10-29 18:30 | NUR ---
Problems reprioritized. Patient report given, questions answered & plan of care reviewed with CHANCE DURAN.
--- NOTE | 2018-10-29 18:41 | NUR ---
Patient in room PCU 3012. I have received report from Doug and had the opportunity to ask questions and assume patient care.
[2018-10-29 22:00] VITALS: BP 106/75
[2018-10-30 02:00] VITALS: BP 107/80
--- NOTE | 2018-10-30 06:25 | NUR ---
Problems reprioritized. Patient report given, questions answered & plan of care reviewed with Doug.
--- NOTE | 2018-10-30 06:30 | NUR ---
Patient in room PCU 3012. I have received report from CHANCE DURAN and had the opportunity to ask questions and assume patient care.
[2018-10-30] MEDS: HYDROmorphone inj. 0.5 MG/0.5 ML DISP.SYRIN IV PRN ×2 (06:33→13:27)
[2018-10-30 07:00] VITALS: BP 101/71
[2018-10-30 07:06] LABS: BASOPHILS # (AUTO) 0.1 X10'3 (0-0.2); BASOPHILS % (AUTO) 0.9 % (0-1); EOSINOPHILS # (AUTO) 0.2 X10'3 (0-0.9); EOSINOPHILS % (AUTO) 3.9 % (0-6); HEMATOCRIT 33.7 % (35.0-45.0); HEMOGLOBIN 11.2 g/dl (12.0-16.0); LYMPHOCYTES # (AUTO) 2.2 X10'3 (1.1-4.8); LYMPHOCYTES % (AUTO) 36.1 % (21-51); MEAN CORPUSCULAR HEMOGLOBIN 28.1 PG (27.0-31.0); MEAN CORPUSCULAR HGB CONC 33.3 g/dL (33.0-36.5); MEAN CORPUSCULAR VOLUME 84.6 FL (78-98); MEAN PLATELET VOLUME 8.5 FL (7.4-10.4); MONOCYTES # (AUTO) 0.6 X10'3 (0-0.9); MONOCYTES % (AUTO) 9.3 % (2-12); NEUTROPHILS % (AUTO) 49.8 % (42-75); PLATELET COUNT 236 X10'3 (140-440); RED BLOOD COUNT 3.98 X10'6 (4.20-5.60); RED CELL DISTRIBUTION WIDTH 17.3 % (11.5-14.5); WHITE BLOOD COUNT 6.1 X10'3 (4.5-11.0)
[2018-10-30 07:34] LABS: ALANINE AMINOTRANSFERASE 16 U/L (12-78); ALBUMIN 2.4 G/DL (3.4-5.0); ALBUMIN/GLOBULIN RATIO 1.1 (1.1-1.5); ALKALINE PHOSPHATASE 105 IU/L (46-116); ANION GAP 6 (8-16); ASPARTATE AMINO TRANSFERASE 23 U/L (10-37); BILIRUBIN,TOTAL 0.5 MG/DL (0.1-1.0); BLOOD UREA NITROGEN 7 MG/DL (7-18); BUN/CREATININE RATIO 14.3 (6.6-38.0); CALCIUM 8.2 MG/DL (8.5-10.1); CHLORIDE 105 MMOL/L (99-107); CREATININE 0.49 MG/DL (0.40-0.90); GLUCOSE 73 MG/DL (70-104); POTASSIUM 4.1 MMOL/L (3.5-5.1); SODIUM 139 MMOL/L (135-145); TOTAL CARBON DIOXIDE 28.3 MMOL/L (24-32); TOTAL PROTEIN 4.6 G/DL (6.4-8.2); eGFR > 90 ML/MIN
[2018-10-30] MEDS: lactose-reduced food (Ensure Enlive) - 237ml bottle PO SCH ×3 (07:40→18:29)
[2018-10-30] MEDS: CefTRIAXone/D5W-Rocephin 1gm 50 ML IV SCH (07:42)
[2018-10-30] MEDS: lactobacillus rhamnosus 10,000 MMU CELLS/CAPSULE PO SCH ×2 (07:46→21:31)
[2018-10-30] MEDS: furosemide 40mg tablet PO SCH (07:47)
[2018-10-30] MEDS: rifaximin 550mg tablet PO SCH ×2 (07:47→21:30)
[2018-10-30] MEDS: midodrine 5mg tablet PO SCH ×2 (07:47→16:08)
[2018-10-30] MEDS: enoxaparin 30mg/0.3ml syringe SUBCUT SCH (07:49)
[2018-10-30] MEDS: spironolactone 50 MG tablet PO SCH (07:49)
[2018-10-30] MEDS: magnesium hydroxide 30ml (MOM) UD suspension PO PRN (07:49)
--- NOTE | 2018-10-30 08:58 | NUR ---
PAGED MANAGER OF COMPLIANCE:R/T [phone], PLEASE CALL [phone]. TY
[2018-10-30 11:00] VITALS: BP 98/80
[2018-10-30] MEDS: lactulose 20gm/30ml cup PO SCH ×2 (11:24→21:30)
[2018-10-30] MEDS: ondansetron/PF 4mg/2ml inj IV PRN ×2 (13:38→21:30)
[2018-10-30 15:00] VITALS: BP 114/84
--- NOTE | 2018-10-30 16:18 | NUR ---
DISCUSSED TURNING IN BED EVERY 2 HOURS, VERBALIZED UNDERSTANDING, STATES "I DON'T NEED HELP, I HAVE BEEN DOING IT MYSELF".
--- NOTE | 2018-10-30 17:18 | NUR ---
PAGER ID: [phone] MESSAGE: DR. ESPAÑA, [id number], CONTINUES TO C/O VAGINAL ITCHING. DM [phone]. TY.
--- NOTE | 2018-10-30 18:20 | NUR ---
Patient in room PCU 3012. I have received report from Fitz FLETCHER and had the opportunity to ask questions and assume patient care.
--- NOTE | 2018-10-30 18:22 | NUR ---
Problems reprioritized. Patient report given, questions answered & plan of care reviewed with CHANCE LISA.
[2018-10-30 19:00] VITALS: BP 119/83
[2018-10-30] MEDS: traMADol 50MG tablet PO PRN (21:31)
[2018-10-30] MEDS: miconazole nitrate 2% 45gm VAG cream VG SCH (21:32)
[2018-10-30 23:00] VITALS: BP 142/98
[2018-10-31] MEDS: midodrine 5mg tablet PO SCH ×3 (01:42→16:11)
[2018-10-31 03:00] VITALS: BP 132/97
[2018-10-31 05:09] LABS: BASOPHILS % (AUTO) 0.3 % (0-1); EOSINOPHILS % (AUTO) 0.1 % (0-6); HEMATOCRIT 37.4 % (35.0-45.0); HEMOGLOBIN 12.3 g/dl (12.0-16.0); LYMPHOCYTES # (AUTO) 1.5 X10'3 (1.1-4.8); LYMPHOCYTES % (AUTO) 15.3 % (21-51); MEAN CORPUSCULAR HEMOGLOBIN 27.7 PG (27.0-31.0); MEAN CORPUSCULAR VOLUME 83.9 FL (78-98); MEAN PLATELET VOLUME 7.6 FL (7.4-10.4); MONOCYTES # (AUTO) 0.6 X10'3 (0-0.9); MONOCYTES % (AUTO) 6.3 % (2-12); NEUTROPHILS # (AUTO) 7.8 X10'3 (1.8-7.7); PLATELET COUNT 336 X10'3 (140-440); RED BLOOD COUNT 4.45 X10'6 (4.20-5.60); RED CELL DISTRIBUTION WIDTH 16.7 % (11.5-14.5)
[2018-10-31 05:23] LABS: ALANINE AMINOTRANSFERASE 16 U/L (12-78); ALBUMIN 2.5 G/DL (3.4-5.0); ALBUMIN/GLOBULIN RATIO 0.9 (1.1-1.5); ALKALINE PHOSPHATASE 121 IU/L (46-116); ANION GAP 5 (8-16); ASPARTATE AMINO TRANSFERASE 17 U/L (10-37); BILIRUBIN,TOTAL 0.5 MG/DL (0.1-1.0); BLOOD UREA NITROGEN 9 MG/DL (7-18); BUN/CREATININE RATIO 15.3 (6.6-38.0); CALCIUM 8.4 MG/DL (8.5-10.1); CHLORIDE 102 MMOL/L (99-107); CREATININE 0.59 MG/DL (0.40-0.90); GLUCOSE 100 MG/DL (70-104); POTASSIUM 3.9 MMOL/L (3.5-5.1); SODIUM 135 MMOL/L (135-145); TOTAL CARBON DIOXIDE 27.7 MMOL/L (24-32); TOTAL PROTEIN 5.2 G/DL (6.4-8.2); eGFR > 90 ML/MIN
[2018-10-31 06:00] VITALS: BP 141/96
--- NOTE | 2018-10-31 06:24 | NUR ---
Patient in room PCU 3012. I have received report from porsche zhu and had the opportunity to ask questions and assume patient care.
--- NOTE | 2018-10-31 06:26 | NUR ---
Problems reprioritized. Patient report given, questions answered & plan of care reviewed with Doug RN.
[2018-10-31] MEDS: ondansetron/PF 4mg/2ml inj IV PRN (07:26)
[2018-10-31] MEDS: CefTRIAXone/D5W-Rocephin 1gm 50 ML IV SCH (07:26)
[2018-10-31] MEDS: lactulose 20gm/30ml cup PO SCH ×2 (08:00→19:40)
[2018-10-31] MEDS: lactose-reduced food (Ensure Enlive) - 237ml bottle PO SCH ×3 (08:00→18:00)
[2018-10-31] MEDS: rifaximin 550mg tablet PO SCH ×2 (08:00→21:18)
[2018-10-31] MEDS: lactobacillus rhamnosus 10,000 MMU CELLS/CAPSULE PO SCH ×2 (08:47→21:18)
[2018-10-31] MEDS: furosemide 40mg tablet PO SCH (08:47)
[2018-10-31] MEDS: enoxaparin 30mg/0.3ml syringe SUBCUT SCH (08:48)
[2018-10-31] MEDS: spironolactone 50 MG tablet PO SCH (08:48)
--- NOTE | 2018-10-31 09:50 | NUR ---
REFUSED DRESSING CHANGE AT THIS TIME. HAS HAD NAUSEA WITH ZOFRAN ADM. THEN ABLE TO TAKE AM PO MEDS, REFUSED LACTULOSE. WILL CONTINUE TO OFFER.
[2018-10-31 11:00] VITALS: BP 142/94
[2018-10-31] MEDS ORDERED: ondansetron/PF 4mg/2ml inj IV ONE (12:20)
[2018-10-31] MEDS: HYDROmorphone inj. 0.5 MG/0.5 ML DISP.SYRIN IV PRN (12:24)
[2018-10-31] MEDS: metoclopramide 5 mg/ml inj IV PRN ×2 (13:39→21:18)
[2018-10-31 15:00] VITALS: BP 140/84
--- NOTE | 2018-10-31 18:15 | NUR ---
Patient in room PCU 3012. I have received report from Doug FLETCHER and had the opportunity to ask questions and assume patient care.
--- NOTE | 2018-10-31 18:36 | NUR ---
Problems reprioritized. Patient report given, questions answered & plan of care reviewed with CHANCE MENDOZA.
[2018-10-31 19:00] VITALS: BP 147/91
[2018-10-31] MEDS: miconazole nitrate 2% 45gm VAG cream VG SCH (21:18)
[2018-10-31 23:00] VITALS: BP 149/87
--- NOTE | 2018-11-01 00:45 | NUR ---
NOTIFICATION: Paged Dr. Mercedes RE: hua MCGRATH RM 3012C HAS 10MG OF MIDODRINE ORDER FOR NOW. HER SBP HAS BEEN IN THE 14OS ALL DAY DO YOU WANT ME TO HOLD THIS DOSE SLOAN RN 2061 New orders received hold midnight Midodrine dose and decrease to 5mg PO Q8 Will continue to monitor
[2018-11-01] MEDS: traMADol 50MG tablet PO PRN (01:48)
[2018-11-01] MEDS: ondansetron/PF 4mg/2ml inj IV PRN ×2 (01:48→14:10)
[2018-11-01] MEDS: HYDROmorphone inj. 0.5 MG/0.5 ML DISP.SYRIN IV PRN ×2 (04:24→14:11)
[2018-11-01 06:30] VITALS: BP 140/92
--- NOTE | 2018-11-01 06:39 | NUR ---
Patient in room PCU 3012C. I have received report from Freda FLETCHER and had the opportunity to ask questions and assume patient care.
--- NOTE | 2018-11-01 06:43 | NUR ---
Problems reprioritized. Patient report given, questions answered & plan of care reviewed with Kaley.
[2018-11-01] MEDS: midodrine 5mg tablet PO SCH ×3 (07:57→16:41)
[2018-11-01] MEDS: metoclopramide 5 mg/ml inj IV PRN (07:57)
[2018-11-01] MEDS: CefTRIAXone/D5W-Rocephin 1gm 50 ML IV SCH (07:57)
[2018-11-01] MEDS: lactobacillus rhamnosus 10,000 MMU CELLS/CAPSULE PO SCH ×2 (07:58→20:50)
[2018-11-01] MEDS: furosemide 40mg tablet PO SCH (07:58)
[2018-11-01] MEDS: spironolactone 50 MG tablet PO SCH (07:58)
[2018-11-01] MEDS: enoxaparin 30mg/0.3ml syringe SUBCUT SCH (07:59)
[2018-11-01] MEDS: lactulose 20gm/30ml cup PO SCH (08:00)
[2018-11-01] MEDS: lactose-reduced food (Ensure Enlive) - 237ml bottle PO SCH ×3 (08:30→18:00)
[2018-11-01] MEDS: rifaximin 550mg tablet PO SCH ×2 (08:36→20:50)
[2018-11-01 11:00] VITALS: BP 128/90
--- NOTE | 2018-11-01 13:27 | NUR ---
Reassessment: Pt continues with low PO intake with documented 0% 10/30-present of meals and ONS. Pt seen at bedside reports low appetite r/t "learned behavior" d/t food availability with limited mobility at last facility she was at as well as hx bariatric surgery. Pt states she doesn't like the Magic cups and wound no longer like to receive them as well as d/c string cheese d/t constipation. Pt reports not drinking the Ensure d/t not only liking the chocolate flavor which was previously out of stock however has since been restocked. All food preferences d/w dietary, see below. Pt still without a BM since 10/23. Pt received Lactulose however has been refusing d/t it making her feel nauseous. Pt receiving PRN MoM and Reglan, routine Miralax just added to med list. Pt agreeable to power pudding with dinner tonight, d/w dietary. Informed pt to reach out to RD team if she has any issues with her meal trays. Will continue to follow. Rec: 1. continue regular diet 2. chocolate ensure enlive TIDWM; cottage cheese with peaches, pears, or pineapple on the side TID; Extra sugar TID; no margarine, butter only 3. bariatric MVI for wound healing/taisha-en-y needs 4. routine bowel care 5. weekly wts 6. honor pt protein food preferences 7. encourage PO intake Addendum: 11/01/18 at [address] Amended: Links added.
--- NOTE | 2018-11-01 14:29 | NUR ---
Paged Dr Wilson PAGER ID: [phone] MESSAGE: Serina [phone]. RE: Doris Ferraro [id number]. Pt is wondering if there are any other PO prn medications she can try. Tramadol does not work; her IV Dilaudid is effective but she is wanting a different PO medication instead if possible.
[2018-11-01 15:00] VITALS: BP 127/89
--- NOTE | 2018-11-01 16:44 | NUR ---
Aid bumped into airbed control board and came and told this nurse that the board was reading "pneumatic board error system" and the light bar on the bottom was solid orange. Called [facility] Samuel and spoke to Minesh, and walked this RN through bed reboot. Bed is now working again the color bar is green (normal). If the bed has any further issues or the light turns orange again, Minesh gave his # to call back: [phone].
--- NOTE | 2018-11-01 18:20 | NUR ---
Patient in room PCU 3012. I have received report from Serina FLETCHER and had the opportunity to ask questions and assume patient care.
--- NOTE | 2018-11-01 18:34 | NUR ---
Problems reprioritized. Patient report given, questions answered & plan of care reviewed with Alli RN.
[2018-11-01 19:00] VITALS: BP 124/88
[2018-11-01] MEDS: polyethylene glycol 3350 17gm powd pack PO SCH (20:48)
[2018-11-01] MEDS: oxyCODONE IR 5mg (immed. release) tablet PO PRN (20:49)
[2018-11-01] MEDS: miconazole nitrate 2% 45gm VAG cream VG SCH (20:50)
[2018-11-01 23:00] VITALS: BP 109/81
[2018-11-02] VITALS (14 sets, daily range): BP systolic 104–127; BP diastolic 64–88
[2018-11-02] MEDS: midodrine 5mg tablet PO SCH ×3 (00:40→16:40)
[2018-11-02] MEDS: oxyCODONE IR 5mg (immed. release) tablet PO PRN ×5 (03:18→20:37)
--- NOTE | 2018-11-02 06:15 | NUR ---
Problems reprioritized. Patient report given, questions answered & plan of care reviewed with Dahiana FLETCHER.
--- NOTE | 2018-11-02 06:47 | NUR ---
Patient in room PCU 3012c. I have received report from CHANCE Carson and had the opportunity to ask questions and assume patient care.
[2018-11-02] MEDS: lactose-reduced food (Ensure Enlive) - 237ml bottle PO SCH ×3 (08:00→17:44)
[2018-11-02] MEDS: enoxaparin 30mg/0.3ml syringe SUBCUT SCH (08:00)
[2018-11-02] MEDS: lactobacillus rhamnosus 10,000 MMU CELLS/CAPSULE PO SCH ×2 (08:17→19:59)
[2018-11-02] MEDS: rifaximin 550mg tablet PO SCH ×2 (08:17→19:59)
[2018-11-02] MEDS: furosemide 40mg tablet PO SCH (08:22)
[2018-11-02] MEDS: spironolactone 50 MG tablet PO SCH (08:31)
--- NOTE | 2018-11-02 09:36 | NUR ---
MD at bedside new order for Miralax one time now received.
[2018-11-02] MEDS ORDERED: polyethylene glycol 3350 17gm powd pack PO ONE (09:45)
--- NOTE | 2018-11-02 10:53 | NUR ---
Paged Dr. Wilson regarding request for daily labs. PAGER ID: [phone] MESSAGE: Saray Ferraro [phone] Can we have daily CMP/CBC? Thanks, CHANCE Monsivais [phone]
[2018-11-02] MEDS ORDERED: albumin (human) 25% 100 ML IV solution IV ONE (15:05)
--- NOTE | 2018-11-02 18:26 | NUR ---
Patient in room PCU 3012C. I have received report from Mame and had the opportunity to ask questions and assume patient care. Will continue to monitor
--- NOTE | 2018-11-02 18:27 | NUR ---
Problems reprioritized. Patient report given, questions answered & plan of care reviewed with CHANCE Edmonds and Rob FLETCHER.
--- NOTE | 2018-11-02 18:34 | NUR ---
[place] documentation: I have reviewed and agree with all interventions, assessments performed and documented by CHANEC Monsivais.
[2018-11-02] MEDS ORDERED: glycerin ADULT rectal suppository RC ONE (18:35)
[2018-11-02] MEDS: polyethylene glycol 3350 17gm powd pack PO SCH (20:00)
[2018-11-02] MEDS: miconazole nitrate 2% 45gm VAG cream VG SCH (20:36)
[2018-11-03] VITALS (7 sets, daily range): BP systolic 97–128; BP diastolic 65–83
[2018-11-03] MEDS: midodrine 5mg tablet PO SCH ×5 (00:30→23:25)
[2018-11-03] MEDS: oxyCODONE IR 5mg (immed. release) tablet PO PRN ×4 (00:31→19:04)
--- NOTE | 2018-11-03 05:12 | NUR ---
[place] Medication Administration: For this medication-pass time frame, all medication were reviewed, dispensed, administered and documented per hospital policy by Rob FLETCHER. [place] documentation: I have reviewed all interventions, assessments performed and documented by Rob FLETCHER.
--- NOTE | 2018-11-03 06:21 | NUR ---
Patient in room PCU 3012. I have received report from CHANCE Edmonds and had the opportunity to ask questions and assume patient care.
--- NOTE | 2018-11-03 06:21 | NUR ---
Problems reprioritized. Patient report given, questions answered & plan of care reviewed with Dahiana FLETCHER.
[2018-11-03] MEDS: lactose-reduced food (Ensure Enlive) - 237ml bottle PO SCH ×3 (08:00→18:10)
[2018-11-03] MEDS: spironolactone 50 MG tablet PO SCH (08:02)
[2018-11-03] MEDS: lactobacillus rhamnosus 10,000 MMU CELLS/CAPSULE PO SCH ×2 (08:02→20:44)
[2018-11-03] MEDS: furosemide 40mg tablet PO SCH ×2 (08:02→20:44)
[2018-11-03] MEDS: rifaximin 550mg tablet PO SCH ×2 (08:03→20:44)
[2018-11-03] MEDS: enoxaparin 30mg/0.3ml syringe SUBCUT SCH (08:03)
--- NOTE | 2018-11-03 09:00 | NUR ---
Dr. Wilson at bedside. Orders received for mag citrate to promote bowel movement.
[2018-11-03] MEDS ORDERED: magnesium citrate 296ml oral solution PO ONE (12:05)
--- NOTE | 2018-11-03 18:12 | NUR ---
Problems reprioritized. Patient report given, questions answered & plan of care reviewed with CHANCE Edmonds.
[2018-11-03] MEDS: miconazole nitrate 2% 45gm VAG cream VG SCH (20:44)
[2018-11-03] MEDS: polyethylene glycol 3350 17gm powd pack PO SCH (20:45)
--- NOTE | 2018-11-03 22:45 | NUR ---
Patient in room U 3012. I have received report from Kendal Gatica and had the opportunity to ask questions and assume patient care. Addendum: 11/03/18 at [address] RN Amended: Links added.
--- NOTE | 2018-11-03 22:59 | NUR ---
Problems reprioritized. Patient report given, questions answered & plan of care reviewed with Alannah FLETCHER.
--- NOTE | 2018-11-03 23:10 | NUR ---
pt c/o pain and medicated for this with diladid iv then given midrine po tolerated well. pt tearful stating she is very depressed and wanting to ask Md about ordering an antidepressant for her.
[2018-11-03] MEDS: HYDROmorphone inj. 0.5 MG/0.5 ML DISP.SYRIN IV PRN (23:22)
[2018-11-04] VITALS (7 sets, daily range): BP systolic 105–127; BP diastolic 71–85
--- NOTE | 2018-11-04 01:00 | NUR ---
resting without changes. awakens easily
--- NOTE | 2018-11-04 03:00 | NUR ---
resting eyes closed no s&s of distress at this time.
--- NOTE | 2018-11-04 05:00 | NUR ---
resting without changes
--- NOTE | 2018-11-04 06:06 | NUR ---
Problems reprioritized. Patient report given, questions answered & plan of care reviewed with Pepe Gatica. Addendum: 11/04/18 at [address] RN Amended: Links added.
--- NOTE | 2018-11-04 06:34 | NUR ---
Patient in room PCU 3012. I have received report from CHANCE Jaffe and had the opportunity to ask questions and assume patient care.
--- NOTE | 2018-11-04 06:38 | NUR ---
Problems reprioritized. Patient report given, questions answered & plan of care reviewed with Dahiana Gatica. Addendum: 11/04/18 at [address] RN Amended: Links added.
[2018-11-04] MEDS: lactose-reduced food (Ensure Enlive) - 237ml bottle PO SCH ×3 (08:00→18:30)
[2018-11-04 08:26] LABS: ALBUMIN 2.7 G/DL (3.4-5.0); ANION GAP 3 (8-16); BLOOD UREA NITROGEN 14 MG/DL (7-18); BUN/CREATININE RATIO 21.2 (6.6-38.0); CALCIUM 8.2 MG/DL (8.5-10.1); CHLORIDE 95 MMOL/L (99-107); CREATININE 0.66 MG/DL (0.40-0.90); GLUCOSE 89 MG/DL (70-104); POTASSIUM 3.5 MMOL/L (3.5-5.1); SODIUM 132 MMOL/L (135-145); TOTAL CARBON DIOXIDE 33.9 MMOL/L (24-32); eGFR > 90 ML/MIN
[2018-11-04] MEDS: lactobacillus rhamnosus 10,000 MMU CELLS/CAPSULE PO SCH ×2 (08:58→20:04)
[2018-11-04] MEDS: enoxaparin 30mg/0.3ml syringe SUBCUT SCH (08:59)
[2018-11-04] MEDS: furosemide 40mg tablet PO SCH ×2 (08:59→20:04)
[2018-11-04] MEDS: oxyCODONE IR 5mg (immed. release) tablet PO PRN ×3 (09:00→20:08)
--- NOTE | 2018-11-04 09:11 | NUR ---
Dr. Wilson at bedside. Addendum: 11/04/18 at 0955 by Jazzy Almazan RN Orders received for lactulose BID PRN constipation.
--- NOTE | 2018-11-04 09:11 | NUR ---
Messaged pharmacy re missing medication.
[2018-11-04] MEDS: spironolactone 50 MG tablet PO SCH (09:24)
--- NOTE | 2018-11-04 11:03 | NUR ---
Reassessment: Per MD notes sepsis with shock secondary to UTI and LLE cellulitis resolving. Pt with slight improvement in PO intake documented with 25-50% x 3 meals and 50% of Ensure Enlive at breakfast yesterday morning. Dietary staff extensively working with pt for food preferences. Multiple possibilities for why pt is with such poor PO intake, including constipation with LBM 10/23. Pt receiving heavy bowel care with PRN Lactulose added back to med list. Lactulose previously d/c'ed d/t pt c/o nausea associated with med intake. During RD visit pt stated she is unsure if Lactulose actually made her nauseous or if that feeling was r/t a memory of when she had taken it before. Noted that pt also received Mag Citrate 11/03. Pt has also been provided with power pudding and continually refuses prunes and prune juice. Pt has RD contact information and has been informed to reach out if there is anything we can do to optimize PO intake. Pt may benefit from appetite stimulant if she continues with poor PO intake. Will continue to follow. Rec: 1. Advance to regular diet as medically indicated; Na 132 today 2. chocolate ensure enlive TIDWM; cottage cheese with peaches, pears, or pineapple on the side TID; Extra sugar TID; no margarine, butter only 3. bariatric MVI for wound healing/taisha-en-y needs 4. routine bowel care 5. weekly wts 6. honor pt protein food preferences 7. encourage PO intake Addendum: 11/04/18 at [address] Amended: Links added.
[2018-11-04] MEDS: rifaximin 550mg tablet PO SCH ×2 (11:08→20:03)
[2018-11-04] MEDS: lactulose 20gm/30ml cup PO PRN (11:18)
[2018-11-04] MEDS: midodrine 5mg tablet PO SCH ×2 (15:18→23:55)
--- NOTE | 2018-11-04 18:38 | NUR ---
Problems reprioritized. Patient report given, questions answered & plan of care reviewed with May RN.
--- NOTE | 2018-11-04 19:30 | NUR ---
pt had lactulose earlier today; pt informed it is ordered BID & does have MOM ordered QD; states she is passing a little gas & wants to hold off on lactulose & MOM for now; states she'll have the routine miralex & will call if additional meds to be given tonight Addendum: 11/05/18 at 0140 by Liudmila Eldridge RN Amended: Links added.
[2018-11-04] MEDS: polyethylene glycol 3350 17gm powd pack PO SCH (20:09)
[2018-11-04] MEDS: miconazole nitrate 2% 45gm VAG cream VG SCH (22:06)
[2018-11-05] MEDS: oxyCODONE IR 5mg (immed. release) tablet PO PRN ×5 (00:06→23:30)
[2018-11-05] MEDS: lactulose 20gm/30ml cup PO PRN (00:06)
[2018-11-05 03:00] VITALS: BP 98/65
[2018-11-05 06:00] VITALS: BP 105/74
--- NOTE | 2018-11-05 07:07 | NUR ---
Patient in room PCU 3012. I have received report from CHANCE DUBON and had the opportunity to ask questions and assume patient care.
[2018-11-05] MEDS: lactobacillus rhamnosus 10,000 MMU CELLS/CAPSULE PO SCH ×2 (07:42→19:15)
[2018-11-05] MEDS: midodrine 5mg tablet PO SCH ×3 (07:43→23:30)
[2018-11-05] MEDS: furosemide 40mg tablet PO SCH ×2 (07:43→19:16)
[2018-11-05] MEDS: lactose-reduced food (Ensure Enlive) - 237ml bottle PO SCH ×3 (07:43→18:02)
[2018-11-05] MEDS: rifaximin 550mg tablet PO SCH ×2 (07:44→19:15)
[2018-11-05] MEDS: enoxaparin 30mg/0.3ml syringe SUBCUT SCH (07:45)
[2018-11-05] MEDS: spironolactone 50 MG tablet PO SCH (07:45)
[2018-11-05 09:34] LABS: ALBUMIN 2.8 G/DL (3.4-5.0); ANION GAP 5 (8-16); BLOOD UREA NITROGEN 15 MG/DL (7-18); BUN/CREATININE RATIO 19.5 (6.6-38.0); CALCIUM 8.6 MG/DL (8.5-10.1); CHLORIDE 93 MMOL/L (99-107); CREATININE 0.77 MG/DL (0.40-0.90); GLUCOSE 74 MG/DL (70-104); POTASSIUM 3.5 MMOL/L (3.5-5.1); SODIUM 132 MMOL/L (135-145); TOTAL CARBON DIOXIDE 34.3 MMOL/L (24-32); eGFR 79 ML/MIN
[2018-11-05 11:00] VITALS: BP 129/92
[2018-11-05 15:00] VITALS: BP 117/81
--- NOTE | 2018-11-05 18:23 | NUR ---
Patient in room PCU 3012. I have received report from Doug FLETCHER and had the opportunity to ask questions and assume patient care.
--- NOTE | 2018-11-05 18:25 | NUR ---
Patient in room [facility] 3012. I have received report from YODIT FLETCHER and had the opportunity to ask questions and assume patient care. Addendum: 11/05/18 at 1826 by Lori Monroe RN Recieved report from CHANCE Camacho, not Yodit FLETCHER
--- NOTE | 2018-11-05 18:32 | NUR ---
Problems reprioritized. Patient report given, questions answered & plan of care reviewed with CHANCE LEI.
[2018-11-05 19:00] VITALS: BP 107/80
[2018-11-05] MEDS: polyethylene glycol 3350 17gm powd pack PO SCH (21:03)
[2018-11-05] MEDS: miconazole nitrate 2% 45gm VAG cream VG SCH (21:03)
[2018-11-05 22:00] VITALS: BP 116/77
[2018-11-06 02:00] VITALS: BP 108/82
[2018-11-06 05:32] LABS: ALBUMIN 2.5 G/DL (3.4-5.0); ANION GAP 2 (8-16); BLOOD UREA NITROGEN 15 MG/DL (7-18); BUN/CREATININE RATIO 18.5 (6.6-38.0); CALCIUM 8.7 MG/DL (8.5-10.1); CHLORIDE 93 MMOL/L (99-107); CREATININE 0.81 MG/DL (0.40-0.90); GLUCOSE 78 MG/DL (70-104); POTASSIUM 4.1 MMOL/L (3.5-5.1); SODIUM 131 MMOL/L (135-145); eGFR 74 ML/MIN
[2018-11-06 06:00] VITALS: BP 100/74
--- NOTE | 2018-11-06 06:32 | NUR ---
Problems reprioritized. Patient report given, questions answered & plan of care reviewed with Doug RN.
--- NOTE | 2018-11-06 06:32 | NUR ---
Problems reprioritized. Patient report given, questions answered & plan of care reviewed with Doug RN and Mynor RN.
--- NOTE | 2018-11-06 06:56 | NUR ---
Patient in room PCU 3012. I have received report from CHANCE ELI and had the opportunity to ask questions and assume patient care.
[2018-11-06] MEDS: lactobacillus rhamnosus 10,000 MMU CELLS/CAPSULE PO SCH ×2 (08:08→19:04)
[2018-11-06] MEDS: midodrine 5mg tablet PO SCH ×3 (08:14→23:58)
[2018-11-06] MEDS: furosemide 40mg tablet PO SCH ×2 (08:14→19:04)
[2018-11-06] MEDS: rifaximin 550mg tablet PO SCH ×2 (08:14→19:04)
[2018-11-06] MEDS: spironolactone 50 MG tablet PO SCH (08:15)
[2018-11-06] MEDS: oxyCODONE IR 5mg (immed. release) tablet PO PRN ×4 (08:15→23:58)
[2018-11-06] MEDS: enoxaparin 30mg/0.3ml syringe SUBCUT SCH (08:16)
[2018-11-06] MEDS: lactose-reduced food (Ensure Enlive) - 237ml bottle PO SCH ×3 (08:21→18:00)
[2018-11-06 11:00] VITALS: BP 113/85
[2018-11-06 15:00] VITALS: BP 108/70
--- NOTE | 2018-11-06 18:14 | NUR ---
Patient in room PCU 3012. I have received report from Doug RN and Rox RN and had the opportunity to ask questions and assume patient care.
--- NOTE | 2018-11-06 18:31 | NUR ---
Problems reprioritized. Patient report given, questions answered & plan of care reviewed with CHANCE LEI.
--- NOTE | 2018-11-06 18:31 | NUR ---
NEW HIRE gravel screener: I have reviewed and agree with all interventions, assessments performed and documented by CHANCE LLOYD.
[2018-11-06 19:00] VITALS: BP 111/81
[2018-11-06] MEDS: emollient combination-Eucerin 250 ML LOTION TP SCH (19:03)
[2018-11-06] MEDS: polyethylene glycol 3350 17gm powd pack PO SCH (21:48)
[2018-11-06 23:00] VITALS: BP 116/79
[2018-11-07 02:00] VITALS: BP 107/70
[2018-11-07 05:34] LABS: ALBUMIN 2.6 G/DL (3.4-5.0); ANION GAP 2 (8-16); BLOOD UREA NITROGEN 17 MG/DL (7-18); BUN/CREATININE RATIO 18.3 (6.6-38.0); CALCIUM 8.4 MG/DL (8.5-10.1); CHLORIDE 92 MMOL/L (99-107); CREATININE 0.93 MG/DL (0.40-0.90); GLUCOSE 94 MG/DL (70-104); POTASSIUM 4.1 MMOL/L (3.5-5.1); SODIUM 129 MMOL/L (135-145); TOTAL CARBON DIOXIDE 34.6 MMOL/L (24-32); eGFR 63 ML/MIN
--- NOTE | 2018-11-07 06:00 | NUR ---
Patient in room PCU 3012. I have received report from CHANCE Hendrickson and had the opportunity to ask questions and assume patient care. Pt sleeping and in NAD
--- NOTE | 2018-11-07 06:25 | NUR ---
Problems reprioritized. Patient report given, questions answered & plan of care reviewed with Dogu RN and Rox RN.
[2018-11-07 07:06] VITALS: BP 97/65
[2018-11-07] MEDS: oxyCODONE IR 5mg (immed. release) tablet PO PRN ×4 (07:11→22:54)
[2018-11-07] MEDS: enoxaparin 30mg/0.3ml syringe SUBCUT SCH (07:47)
[2018-11-07] MEDS: rifaximin 550mg tablet PO SCH ×2 (07:47→19:37)
[2018-11-07] MEDS: furosemide 40mg tablet PO SCH ×2 (07:47→19:36)
[2018-11-07] MEDS: midodrine 5mg tablet PO SCH ×3 (07:47→23:37)
[2018-11-07] MEDS: lactobacillus rhamnosus 10,000 MMU CELLS/CAPSULE PO SCH ×2 (07:48→19:36)
[2018-11-07] MEDS: emollient combination-Eucerin 250 ML LOTION TP SCH ×2 (07:49→19:38)
[2018-11-07] MEDS: lactose-reduced food (Ensure Enlive) - 237ml bottle PO SCH ×3 (07:50→18:21)
--- NOTE | 2018-11-07 08:52 | NUR ---
DR. ESPAÑA IN, INFORMED PT WANTS TO DISCUSS CODE STATUS.
[2018-11-07] MEDS: spironolactone 50 MG tablet PO SCH (09:04)
--- NOTE | 2018-11-07 09:25 | NUR ---
Reassessment: Pt finally with a BM after 13 days of constipation! PO intake improving slowly documented with 25-75% of meals and fluctuating PO intake of ONS documented with 0%, 50%, and 75%. Likely PO intake will continue to improve once pt with regular BMs. Pt would benefit from liberalization in diet d/t low PO intake for several days and with Na trending downwards now at 129. LBM 11/05. Pt continues with heavy bowel care. Will continue to follow. Rec: 1. Advance to regular diet as medically indicated; Na 129 today 2. chocolate ensure enlive TIDWM; cottage cheese with peaches, pears, or pineapple on the side TID; Extra sugar TID; no margarine, butter only 3. bariatric MVI for wound healing/taisha-en-y needs 4. routine bowel care 5. weekly wts 6. honor pt protein food preferences 7. encourage PO intake Addendum: 11/07/18 at [address] Amended: Links added.
[2018-11-07 11:00] VITALS: BP 102/71
[2018-11-07 15:00] VITALS: BP 101/56
--- NOTE | 2018-11-07 17:56 | NUR ---
[id number] MESSAGE: RE: POLST for Saray Maher [id number]. She wishes to be a full code. A POLST has been filled out and will be in her chart for you to sign. CHANCE Torrez U ext [phone]
--- NOTE | 2018-11-07 18:16 | NUR ---
Problems reprioritized. Patient report given, questions answered & plan of care reviewed with CHANCE LEI.
--- NOTE | 2018-11-07 18:16 | NUR ---
NEW HIRE claim review medical director: I have reviewed and agree with all interventions, assessments performed and documented by CHANCE LLOYD.
--- NOTE | 2018-11-07 18:25 | NUR ---
Patient in room PCU 3012. I have received report from Doug RN and Rox RN and had the opportunity to ask questions and assume patient care.
[2018-11-07 19:00] VITALS: BP 106/73
[2018-11-07] MEDS: polyethylene glycol 3350 17gm powd pack PO SCH (21:19)
[2018-11-07 23:00] VITALS: BP 126/71
[2018-11-08] VITALS (8 sets, daily range): BP systolic 105–116; BP diastolic 68–84
--- NOTE | 2018-11-08 05:06 | NUR ---
Orientee documentation: I have reviewed and agree with all interventions, assessments performed and documented by Tracy FLETCHER. Orientee Medication Administration: For this medication-pass time frame, all medication were reviewed, dispensed, administered and documented per hospital policy by Tracy FLETCHER.
[2018-11-08 05:15] LABS: ALBUMIN 2.4 G/DL (3.4-5.0); ANION GAP 1 (8-16); BLOOD UREA NITROGEN 19 MG/DL (7-18); BUN/CREATININE RATIO 23.8 (6.6-38.0); CALCIUM 8.5 MG/DL (8.5-10.1); CHLORIDE 94 MMOL/L (99-107); GLUCOSE 78 MG/DL (70-104); POTASSIUM 3.8 MMOL/L (3.5-5.1); SODIUM 132 MMOL/L (135-145); TOTAL CARBON DIOXIDE 36.8 MMOL/L (24-32); eGFR 75 ML/MIN
--- NOTE | 2018-11-08 06:00 | NUR ---
Patient in room PCU 3012. I have received report from CHANCE Hendrickson and had the opportunity to ask questions and assume patient care.
--- NOTE | 2018-11-08 06:28 | NUR ---
Problems reprioritized. Patient report given, questions answered & plan of care reviewed with Janette FLETCHER and Rox FLETCHER.
[2018-11-08] MEDS: oxyCODONE IR 5mg (immed. release) tablet PO PRN ×3 (07:14→19:08)
[2018-11-08] MEDS: midodrine 5mg tablet PO SCH ×3 (07:34→23:22)
[2018-11-08] MEDS: furosemide 40mg tablet PO SCH ×3 (07:34→21:06)
[2018-11-08] MEDS: lactobacillus rhamnosus 10,000 MMU CELLS/CAPSULE PO SCH ×2 (07:34→21:05)
[2018-11-08] MEDS: rifaximin 550mg tablet PO SCH ×2 (07:35→21:05)
[2018-11-08] MEDS: spironolactone 50 MG tablet PO SCH ×2 (07:35→21:05)
[2018-11-08] MEDS: enoxaparin 30mg/0.3ml syringe SUBCUT SCH (07:36)
[2018-11-08] MEDS: lactose-reduced food (Ensure Enlive) - 237ml bottle PO SCH ×2 (07:40→17:30)
[2018-11-08] MEDS: emollient combination-Eucerin 250 ML LOTION TP SCH ×2 (08:00→21:12)
--- NOTE | 2018-11-08 09:30 | NUR ---
MADE DR. ESPAÑA AWARE OF SHIFT IN WEIGHT. NO NEW ORDERS.,
--- NOTE | 2018-11-08 13:10 | NUR ---
DISCUSSED WITH HOSPITALIST THE ABUNDANCE OF ENSURE THAT IS COMING TO PATIENT WITH MEALS THAT SHE IS UNABLE TO DRINK, DECREASED ORDER TO TWICE DAILY.
--- NOTE | 2018-11-08 14:00 | NUR ---
F/u: research technician reports ensures stacking up at pt bedside since not drinking TID. PO 50% avg meals today RD d/w dietary will change to BIDBD from TID given low PO; RN notified. Reassessment: Pt finally with a BM after 13 days of constipation! PO intake improving slowly documented with 25-75% of meals and fluctuating PO intake of ONS documented with 0%, 50%, and 75%. Likely PO intake will continue to improve once pt with regular BMs. Pt would benefit from liberalization in diet d/t low PO intake for several days and with Na trending downwards now at 129. LBM 11/05. Pt continues with heavy bowel care. Will continue to follow. Rec: 1. Advance to regular diet as medically indicated; Na 129 today 2. chocolate ensure enlive BIDBD; cottage cheese with peaches, pears, or pineapple on the side TID; Extra sugar TID; no margarine, butter only 3. bariatric MVI for wound healing/taisha-en-y needs 4. routine bowel care 5. weekly wts 6. honor pt protein food preferences 7. encourage PO intake Addendum: 11/08/18 at [address] Amended: Links added.
[2018-11-08] MEDS: lactulose 20gm/30ml cup PO PRN (15:33)
--- NOTE | 2018-11-08 17:26 | NUR ---
PATIENT REFUSED TO GET UP TO CHAIR FOR DINNER.
--- NOTE | 2018-11-08 18:10 | NUR ---
Problems reprioritized. Patient report given, questions answered & plan of care reviewed with Bradley FLETCHER.
--- NOTE | 2018-11-08 18:38 | NUR ---
Patient in room PCU 3012. I have received report from Janette FLETCHER and had the opportunity to ask questions and assume patient care.
[2018-11-08] MEDS: polyethylene glycol 3350 17gm powd pack PO SCH (21:06)
[2018-11-08] MEDS: gabapentin 100mg capsule PO SCH (23:22)
[2018-11-09] MEDS: oxyCODONE IR 5mg (immed. release) tablet PO PRN ×4 (00:06→21:34)
--- NOTE | 2018-11-09 01:42 | NUR ---
Page Sent promotional table spacer PAGER ID: [phone] MESSAGE: [id number] Saray Ferraro here for cirrhosis, sepsis, cellulitis is complaining of itching. She is developing a rash on her arms and chest. Can I get something for itching? Thanks Bradley [phone]
[2018-11-09] MEDS: diphenhydrAMINE 25 MG/10 ML UD oral solution PO PRN (02:01)
[2018-11-09 03:00] VITALS: BP 114/79
[2018-11-09 05:53] LABS: ALBUMIN 2.7 G/DL (3.4-5.0); ANION GAP 4 (8-16); BLOOD UREA NITROGEN 18 MG/DL (7-18); CALCIUM 9.1 MG/DL (8.5-10.1); CHLORIDE 92 MMOL/L (99-107); GLUCOSE 82 MG/DL (70-104); POTASSIUM 3.8 MMOL/L (3.5-5.1); SODIUM 131 MMOL/L (135-145); TOTAL CARBON DIOXIDE 34.9 MMOL/L (24-32); eGFR 66 ML/MIN
--- NOTE | 2018-11-09 06:31 | NUR ---
Problems reprioritized. Patient report given, questions answered & plan of care reviewed with Mariah.
--- NOTE | 2018-11-09 06:43 | NUR ---
Patient in room PCU 3012. I have received report from CHANCE Huerta and had the opportunity to ask questions and assume patient care. Patient currently sleeping comfortably, no acute distress, will continue to monitor.
[2018-11-09 07:01] VITALS: BP 107/76
--- NOTE | 2018-11-09 07:13 | NUR ---
PAGER ID: [phone] MESSAGE: CHANCE Lemus, ext [phone], [id number][facility] no [facility] since 10/31 but lovenox is ordered, patient has purpural rash. patient experienced severe itching last night after Aldactone and received Benadryl, will hold until I hear from you. Thank you.
[2018-11-09] MEDS: lactobacillus rhamnosus 10,000 MMU CELLS/CAPSULE PO SCH ×2 (07:56→21:23)
[2018-11-09] MEDS: rifaximin 550mg tablet PO SCH ×2 (07:56→21:23)
[2018-11-09] MEDS: gabapentin 100mg capsule PO SCH ×3 (07:57→23:17)
[2018-11-09] MEDS: furosemide 40mg tablet PO SCH ×3 (07:57→21:24)
[2018-11-09] MEDS: midodrine 5mg tablet PO SCH ×3 (07:58→23:16)
[2018-11-09] MEDS: spironolactone 50 MG tablet PO SCH ×2 (08:00→21:09)
[2018-11-09] MEDS: lactose-reduced food (Ensure Enlive) - 237ml bottle PO SCH ×2 (08:00→17:30)
--- NOTE | 2018-11-09 08:03 | NUR ---
spironolactone on hold per Dr. Mayers since patient had new onset itching last night after first dose of medication. lovenox on hold waiting for lab results as patient has purpural rash.
[2018-11-09 08:06] LABS: BASOPHILS # (AUTO) 0.1 X10'3 (0-0.2); EOSINOPHILS # (AUTO) 0.1 X10'3 (0-0.9); EOSINOPHILS % (AUTO) 0.6 % (0-6); HEMATOCRIT 34.6 % (35.0-45.0); HEMOGLOBIN 11.2 g/dl (12.0-16.0); LYMPHOCYTES # (AUTO) 3.8 X10'3 (1.1-4.8); LYMPHOCYTES % (AUTO) 33.9 % (21-51); MEAN CORPUSCULAR HGB CONC 32.3 g/dL (33.0-36.5); MEAN CORPUSCULAR VOLUME 86.6 FL (78-98); MEAN PLATELET VOLUME 8.5 FL (7.4-10.4); MONOCYTES # (AUTO) 1.3 X10'3 (0-0.9); MONOCYTES % (AUTO) 11.9 % (2-12); NEUTROPHILS # (AUTO) 5.9 X10'3 (1.8-7.7); NEUTROPHILS % (AUTO) 52.6 % (42-75); PLATELET COUNT 595 X10'3 (140-440); RED BLOOD COUNT 3.99 X10'6 (4.20-5.60); RED CELL DISTRIBUTION WIDTH 18.4 % (11.5-14.5); WHITE BLOOD COUNT 11.3 X10'3 (4.5-11.0)
[2018-11-09] MEDS: emollient combination-Eucerin 250 ML LOTION TP SCH ×2 (08:08→21:23)
[2018-11-09 08:27] LABS: ANISOCYTOSIS 2+; HYPOGRANULAR PLATELETS MANY; PLATELET ESTIMATE INCREASED; TOTAL CELLS COUNTED 100
[2018-11-09] MEDS: ondansetron/PF 4mg/2ml inj IV PRN (08:59)
[2018-11-09] MEDS: magnesium hydroxide 30ml (MOM) UD suspension PO PRN (09:00)
[2018-11-09] MEDS: enoxaparin 30mg/0.3ml syringe SUBCUT SCH (09:49)
[2018-11-09 11:32] VITALS: BP 112/82
--- NOTE | 2018-11-09 12:15 | NUR ---
Reassessment: PO intake significantly improved now averaging 50% with some 75% and 100%, receiving Ensure Enlive BIDBD. Unfortunately pt constipated again with LBM 11/05. Pt continues with bowel care receiving routine Miralax with PRN MoM given today and PRN Lactulose given 11/08. Per MD notes pt feels a little bit improved. Will continue to follow and make recommendations as appropriate. Rec: 1. Advance to regular diet as medically indicated; Na 131 today 2. chocolate ensure enlive BIDBD; cottage cheese with peaches, pears, or pineapple on the side TID; Extra sugar TID; no margarine, butter only 3. bariatric MVI for wound healing/taisha-en-y needs 4. routine bowel care 5. weekly wts 6. honor pt protein food preferences 7. encourage PO intake Addendum: 11/09/18 at [address] Amended: Links added.
[2018-11-09 17:00] VITALS: BP 109/81
--- NOTE | 2018-11-09 18:05 | NUR ---
Problems reprioritized. Patient report given, questions answered & plan of care reviewed with CHANCE Huerta. Patient is currently resting comfortably in bed, bed locked adn low, call light in reach. Stable at shift change.
--- NOTE | 2018-11-09 18:34 | NUR ---
Patient in room PCU 3012. I have received report from Mariah FLETCHER and had the opportunity to ask questions and assume patient care.
[2018-11-09 19:00] VITALS: BP 127/89
[2018-11-09] MEDS: polyethylene glycol 3350 17gm powd pack PO SCH (21:23)
[2018-11-09 23:00] VITALS: BP 119/77
[2018-11-10] VITALS (9 sets, daily range): BP systolic 98–116; BP diastolic 56–84
--- NOTE | 2018-11-10 06:00 | NUR ---
Patient in room PCU 3012. I have received report from CHANCE Huerta and had the opportunity to ask questions and assume patient care.
--- NOTE | 2018-11-10 06:28 | NUR ---
Problems reprioritized. Patient report given, questions answered & plan of care reviewed with Pepe/Cary FLETCHER.
[2018-11-10 06:32] LABS: EOSINOPHILS # (AUTO) 0.1 X10'3 (0-0.9); MEAN PLATELET VOLUME 8.2 FL (7.4-10.4); NEUTROPHILS # (AUTO) 5.6 X10'3 (1.8-7.7); WHITE BLOOD COUNT 11.2 X10'3 (4.5-11.0)
[2018-11-10 06:36] LABS: BASOPHILS # (AUTO) 0.2 X10'3 (0-0.2); BASOPHILS % (AUTO) 1.4 % (0-1); EOSINOPHILS % (AUTO) 0.5 % (0-6); HEMATOCRIT 32.8 % (35.0-45.0); HEMOGLOBIN 10.8 g/dl (12.0-16.0); MEAN CORPUSCULAR HEMOGLOBIN 28.2 PG (27.0-31.0); MEAN CORPUSCULAR HGB CONC 33.1 g/dL (33.0-36.5); MEAN CORPUSCULAR VOLUME 85.3 FL (78-98); MONOCYTES # (AUTO) 1.4 X10'3 (0-0.9); MONOCYTES % (AUTO) 12.1 % (2-12); PLATELET COUNT 677 X10'3 (140-440); RED BLOOD COUNT 3.84 X10'6 (4.20-5.60)
[2018-11-10] MEDS: midodrine 5mg tablet PO SCH ×2 (07:35→16:21)
[2018-11-10] MEDS: gabapentin 100mg capsule PO SCH ×2 (07:35→16:21)
[2018-11-10] MEDS: furosemide 40mg tablet PO SCH ×3 (07:35→20:14)
[2018-11-10] MEDS: lactobacillus rhamnosus 10,000 MMU CELLS/CAPSULE PO SCH ×2 (07:35→20:14)
[2018-11-10] MEDS: enoxaparin 30mg/0.3ml syringe SUBCUT SCH (07:36)
[2018-11-10] MEDS: lactose-reduced food (Ensure Enlive) - 237ml bottle PO SCH ×2 (07:40→16:55)
[2018-11-10] MEDS: emollient combination-Eucerin 250 ML LOTION TP SCH ×2 (07:57→20:15)
[2018-11-10] MEDS: rifaximin 550mg tablet PO SCH ×2 (07:57→20:14)
[2018-11-10] MEDS: spironolactone 50 MG tablet PO SCH ×2 (08:00→20:14)
--- NOTE | 2018-11-10 08:59 | NUR ---
PAGER ID: [phone] MESSAGE: [id number] Saray Galarza: Do you want us to give or hold the Aldactone due to the possible reaction yesterday? CHANCE Cantu Ext [phone] Addendum: 11/10/18 at 0914 by Goyo Lacey RN returned phone call. Order to hold Aldactone.
[2018-11-10 09:15] LABS: PARTIAL THROMBOPLASTIN TIME 32 SECONDS (22-32)
[2018-11-10 09:22] LABS: ALBUMIN 2.6 G/DL (3.4-5.0); ANION GAP 3 (8-16); BLOOD UREA NITROGEN 18 MG/DL (7-18); BUN/CREATININE RATIO 18.4 (6.6-38.0); CALCIUM 8.6 MG/DL (8.5-10.1); CHLORIDE 91 MMOL/L (99-107); CREATININE 0.98 MG/DL (0.40-0.90); GLUCOSE 90 MG/DL (70-104); POTASSIUM 4.5 MMOL/L (3.5-5.1); SODIUM 129 MMOL/L (135-145); TOTAL CARBON DIOXIDE 35.3 MMOL/L (24-32); eGFR 60 ML/MIN
--- NOTE | 2018-11-10 11:15 | NUR ---
PAGER ID: [phone] MESSAGE: [id number] Saray McCheike: How long would you like to keep in her PICC line? CHANCE Townsend ext [phone]
[2018-11-10] MEDS ORDERED: albumin (human) 25% 100 ML IV solution IV ONE (11:20)
--- NOTE | 2018-11-10 15:36 | NUR ---
Could not obtain daily weight today. Pt states she is too dizzy. Will obtain tomorrow.
[2018-11-10] MEDS: HYDROmorphone inj. 0.5 MG/0.5 ML DISP.SYRIN IV PRN (18:00)
--- NOTE | 2018-11-10 18:06 | NUR ---
Orientee documentation: I have reviewed and agree with all interventions, assessments performed and documented by CHANCE Townsend.
--- NOTE | 2018-11-10 18:07 | NUR ---
Orientee documentation: I have reviewed and agree with all interventions, assessments performed and documented by CHANCE Townsend.
--- NOTE | 2018-11-10 18:07 | NUR ---
Orientee Medication Administration: For this medication-pass time frame, all medication were reviewed, dispensed, administered and documented per hospital policy by CHANCE Townsend.
--- NOTE | 2018-11-10 18:12 | NUR ---
Problems reprioritized. Patient report given, questions answered & plan of care reviewed with CHANCE Lowe.
[2018-11-10] MEDS: polyethylene glycol 3350 17gm powd pack PO SCH (20:15)
[2018-11-11] MEDS: midodrine 5mg tablet PO SCH ×4 (01:20→23:39)
[2018-11-11] MEDS: gabapentin 300mg capsule PO SCH ×4 (01:20→23:38)
[2018-11-11] MEDS: oxyCODONE IR 5mg (immed. release) tablet PO PRN ×3 (01:36→23:58)
[2018-11-11 02:00] VITALS: BP 98/68
[2018-11-11 06:00] VITALS: BP 108/72
--- NOTE | 2018-11-11 06:04 | NUR ---
Patient in room PCU 3012. I have received report from CHANCE Lowe and had the opportunity to ask questions and assume patient care.
[2018-11-11 07:13] LABS: BASOPHILS % (AUTO) 0.4 % (0-1); EOSINOPHILS # (AUTO) 0.1 X10'3 (0-0.9); EOSINOPHILS % (AUTO) 0.6 % (0-6); HEMATOCRIT 30.3 % (35.0-45.0); HEMOGLOBIN 10.2 g/dl (12.0-16.0); LYMPHOCYTES # (AUTO) 3.8 X10'3 (1.1-4.8); LYMPHOCYTES % (AUTO) 33.8 % (21-51); MEAN CORPUSCULAR HEMOGLOBIN 28.7 PG (27.0-31.0); MEAN CORPUSCULAR HGB CONC 33.6 g/dL (33.0-36.5); MEAN CORPUSCULAR VOLUME 85.3 FL (78-98); MEAN PLATELET VOLUME 7.2 FL (7.4-10.4); MONOCYTES # (AUTO) 1.1 X10'3 (0-0.9); MONOCYTES % (AUTO) 9.8 % (2-12); NEUTROPHILS # (AUTO) 6.2 X10'3 (1.8-7.7); NEUTROPHILS % (AUTO) 55.4 % (42-75); PLATELET COUNT 570 X10'3 (140-440); RED BLOOD COUNT 3.55 X10'6 (4.20-5.60); RED CELL DISTRIBUTION WIDTH 17.6 % (11.5-14.5); WHITE BLOOD COUNT 11.2 X10'3 (4.5-11.0)
[2018-11-11] MEDS: spironolactone 50 MG tablet PO SCH ×2 (07:22→20:08)
[2018-11-11] MEDS: lactose-reduced food (Ensure Enlive) - 237ml bottle PO SCH ×2 (07:22→18:04)
[2018-11-11] MEDS: lactobacillus rhamnosus 10,000 MMU CELLS/CAPSULE PO SCH ×2 (07:26→20:08)
[2018-11-11] MEDS: furosemide 40mg tablet PO SCH ×3 (07:26→20:09)
[2018-11-11] MEDS: enoxaparin 30mg/0.3ml syringe SUBCUT SCH (07:27)
[2018-11-11] MEDS: HYDROmorphone inj. 0.5 MG/0.5 ML DISP.SYRIN IV PRN ×3 (07:27→20:09)
[2018-11-11] MEDS: rifaximin 550mg tablet PO SCH ×2 (07:38→20:08)
[2018-11-11] MEDS: emollient combination-Eucerin 250 ML LOTION TP SCH ×2 (08:02→20:08)
[2018-11-11] MEDS: magnesium hydroxide 30ml (MOM) UD suspension PO PRN (09:18)
[2018-11-11 11:00] VITALS: BP 114/72
[2018-11-11 15:00] VITALS: BP 92/67
[2018-11-11 18:00] VITALS: BP 102/69
--- NOTE | 2018-11-11 18:20 | NUR ---
Problems reprioritized. Patient report given, questions answered & plan of care reviewed with CHANCE Tovar.
[2018-11-11] MEDS: polyethylene glycol 3350 17gm powd pack PO SCH (20:09)
[2018-11-11 22:00] VITALS: BP 96/63
[2018-11-11] MEDS: Melatonin 3mg tablet PO PRN (22:05)
[2018-11-11] MEDS: diphenhydrAMINE 25 MG/10 ML UD oral solution PO PRN (23:57)
[2018-11-12 02:00] VITALS: BP 102/64
[2018-11-12] MEDS: HYDROmorphone inj. 0.5 MG/0.5 ML DISP.SYRIN IV PRN ×2 (03:23→14:40)
[2018-11-12 03:36] LABS: EOSINOPHILS # (AUTO) 0.1 X10'3 (0-0.9); MEAN PLATELET VOLUME 7.3 FL (7.4-10.4); MONOCYTES # (AUTO) 0.9 X10'3 (0-0.9); RED CELL DISTRIBUTION WIDTH 17.8 % (11.5-14.5)
[2018-11-12 03:37] LABS: BASOPHILS % (AUTO) 0.3 % (0-1); EOSINOPHILS % (AUTO) 0.8 % (0-6); HEMATOCRIT 31.4 % (35.0-45.0); HEMOGLOBIN 10.6 g/dl (12.0-16.0); LYMPHOCYTES # (AUTO) 4.4 X10'3 (1.1-4.8); LYMPHOCYTES % (AUTO) 47.1 % (21-51); MEAN CORPUSCULAR HEMOGLOBIN 28.9 PG (27.0-31.0); MEAN CORPUSCULAR HGB CONC 33.8 g/dL (33.0-36.5); MEAN CORPUSCULAR VOLUME 85.4 FL (78-98); MONOCYTES % (AUTO) 9.2 % (2-12); NEUTROPHILS % (AUTO) 42.6 % (42-75); PLATELET COUNT 597 X10'3 (140-440); RED BLOOD COUNT 3.68 X10'6 (4.20-5.60); WHITE BLOOD COUNT 9.3 X10'3 (4.5-11.0)
[2018-11-12 03:40] LABS: ALBUMIN 2.5 G/DL (3.4-5.0); BLOOD UREA NITROGEN 19 MG/DL (7-18); BUN/CREATININE RATIO 20.7 (6.6-38.0); CALCIUM 8.6 MG/DL (8.5-10.1); CHLORIDE 91 MMOL/L (99-107); CREATININE 0.92 MG/DL (0.40-0.90); GLUCOSE 85 MG/DL (70-104); SODIUM 127 MMOL/L (135-145); eGFR 64 ML/MIN
[2018-11-12 03:46] LABS: ANION GAP 0 (8-16); POTASSIUM 4.5 MMOL/L (3.5-5.1); TOTAL CARBON DIOXIDE 36.2 MMOL/L (24-32)
[2018-11-12] MEDS: oxyCODONE IR 5mg (immed. release) tablet PO PRN ×2 (04:53→19:53)
--- NOTE | 2018-11-12 06:31 | NUR ---
Patient in room PCU 3012. I have received report from La FLETCHER and had the opportunity to ask questions and assume patient care.
[2018-11-12 07:00] VITALS: BP 87/63
[2018-11-12] MEDS: lactobacillus rhamnosus 10,000 MMU CELLS/CAPSULE PO SCH ×2 (07:28→19:55)
[2018-11-12] MEDS: gabapentin 300mg capsule PO SCH ×2 (07:28→16:54)
[2018-11-12] MEDS: furosemide 40mg tablet PO SCH ×3 (07:28→20:02)
[2018-11-12] MEDS: rifaximin 550mg tablet PO SCH ×2 (07:28→19:56)
[2018-11-12] MEDS: midodrine 5mg tablet PO SCH ×2 (07:28→16:54)
[2018-11-12] MEDS: enoxaparin 30mg/0.3ml syringe SUBCUT SCH (07:29)
[2018-11-12] MEDS: lactose-reduced food (Ensure Enlive) - 237ml bottle PO SCH ×2 (07:50→17:43)
[2018-11-12] MEDS: emollient combination-Eucerin 250 ML LOTION TP SCH ×2 (08:00→19:56)
[2018-11-12] MEDS: spironolactone 50 MG tablet PO SCH ×2 (08:00→19:56)
[2018-11-12 11:00] VITALS: BP 100/65
[2018-11-12 15:00] VITALS: BP 110/77
--- NOTE | 2018-11-12 15:20 | NUR ---
PAGER ID: [phone] MESSAGE: [id number] Ronan. Do you want to continue the patient on spironolactone? Yodit [phone]
[2018-11-12 18:00] VITALS: BP 116/76
--- NOTE | 2018-11-12 18:15 | NUR ---
Patient in room PCU 3012. I have received report from Yodit FLETCHER and had the opportunity to ask questions and assume patient care. Patient is eating and has no immediate needs. Will continue to monitor.
--- NOTE | 2018-11-12 18:27 | NUR ---
Problems reprioritized. Patient report given, questions answered & plan of care reviewed with Nicole FLETCHER. Patient stable at transfer of care.
[2018-11-12] MEDS: polyethylene glycol 3350 17gm powd pack PO SCH (20:04)
[2018-11-12 22:00] VITALS: BP 102/70
[2018-11-13] MEDS: gabapentin 300mg capsule PO SCH ×3 (01:23→15:11)
[2018-11-13] MEDS: midodrine 5mg tablet PO SCH ×3 (01:23→15:11)
[2018-11-13 02:00] VITALS: BP 107/74
[2018-11-13 04:20] LABS: BASOPHILS # (AUTO) 0.1 X10'3 (0-0.2); BASOPHILS % (AUTO) 0.9 % (0-1); EOSINOPHILS # (AUTO) 0.1 X10'3 (0-0.9); EOSINOPHILS % (AUTO) 0.8 % (0-6); HEMATOCRIT 30.7 % (35.0-45.0); HEMOGLOBIN 10.3 g/dl (12.0-16.0); LYMPHOCYTES # (AUTO) 3.6 X10'3 (1.1-4.8); LYMPHOCYTES % (AUTO) 39.2 % (21-51); MEAN CORPUSCULAR HEMOGLOBIN 28.7 PG (27.0-31.0); MEAN CORPUSCULAR HGB CONC 33.5 g/dL (33.0-36.5); MEAN CORPUSCULAR VOLUME 85.7 FL (78-98); MEAN PLATELET VOLUME 7.1 FL (7.4-10.4); MONOCYTES # (AUTO) 1.1 X10'3 (0-0.9); MONOCYTES % (AUTO) 11.7 % (2-12); NEUTROPHILS # (AUTO) 4.4 X10'3 (1.8-7.7); NEUTROPHILS % (AUTO) 47.4 % (42-75); PLATELET COUNT 435 X10'3 (140-440); RED BLOOD COUNT 3.58 X10'6 (4.20-5.60); RED CELL DISTRIBUTION WIDTH 17.9 % (11.5-14.5); WHITE BLOOD COUNT 9.3 X10'3 (4.5-11.0)
[2018-11-13 04:25] LABS: ALBUMIN 2.4 G/DL (3.4-5.0); ANION GAP 2 (8-16); BLOOD UREA NITROGEN 19 MG/DL (7-18); BUN/CREATININE RATIO 23.8 (6.6-38.0); CALCIUM 8.5 MG/DL (8.5-10.1); CHLORIDE 92 MMOL/L (99-107); GLUCOSE 59 MG/DL (70-104); POTASSIUM 3.9 MMOL/L (3.5-5.1); SODIUM 130 MMOL/L (135-145); TOTAL CARBON DIOXIDE 35.9 MMOL/L (24-32); eGFR 75 ML/MIN
[2018-11-13] MEDS: oxyCODONE IR 5mg (immed. release) tablet PO PRN ×3 (04:50→21:04)
--- NOTE | 2018-11-13 06:05 | NUR ---
Problems reprioritized. Patient report given, questions answered & plan of care reviewed with Yodit FLETCHER.
--- NOTE | 2018-11-13 06:37 | NUR ---
Patient in room PCU 3012. I have received report from Nicole Gatica and had the opportunity to ask questions and assume patient care.
[2018-11-13 06:38] VITALS: BP 110/78
[2018-11-13] MEDS: lactobacillus rhamnosus 10,000 MMU CELLS/CAPSULE PO SCH ×2 (07:03→21:03)
[2018-11-13] MEDS: furosemide 40mg tablet PO SCH ×3 (07:03→21:08)
[2018-11-13] MEDS: rifaximin 550mg tablet PO SCH ×2 (07:03→21:05)
[2018-11-13] MEDS: emollient combination-Eucerin 250 ML LOTION TP SCH ×2 (07:03→21:06)
[2018-11-13] MEDS: spironolactone 50 MG tablet PO SCH ×2 (07:03→21:09)
[2018-11-13] MEDS: lactose-reduced food (Ensure Enlive) - 237ml bottle PO SCH ×2 (08:12→17:42)
--- NOTE | 2018-11-13 10:37 | NUR ---
PAGER ID: [phone] MESSAGE: [phone] Michell. Patient has had PICC line in for 21 days and is not getting any scheduled IV medications. Please advise Yodit [phone]
[2018-11-13 11:00] VITALS: BP 110/68
--- NOTE | 2018-11-13 14:16 | NUR ---
reassessment; Pt PO 100% meals/ONS meeting needs. GARY d/w RN regarding advancement to regular diet per MD approval w/ Na 130 or low majority of this admit. LBM 11/12. -8250ml off s/p paracentesis 11/10. Will continue to monitor. Rec: 1. Advance to regular diet as medically indicated; Na 131 today 2. chocolate ensure enlive BIDBD; cottage cheese with peaches, pears, or pineapple on the side TID; Extra sugar TID; no margarine, butter only 3. bariatric MVI for wound healing/taisha-en-y needs 4. routine bowel care 5. weekly wts 6. honor pt protein food preferences 7. encourage PO intake Addendum: 11/13/18 at [address] Amended: Links added.
--- NOTE | 2018-11-13 14:57 | NUR ---
Per Dr. Wu the PICC is okay to keep at this time. Dressing changed and will monitor for any changes.
[2018-11-13 15:00] VITALS: BP 131/86
[2018-11-13 18:00] VITALS: BP 108/75
--- NOTE | 2018-11-13 18:15 | NUR ---
Patient in room PCU 3012. I have received report fromYodit FLETCHER and had the opportunity to ask questions and assume patient care.
--- NOTE | 2018-11-13 18:31 | NUR ---
Problems reprioritized. Patient report given, questions answered & plan of care reviewed with Ashlyn FLETCHER. Patient sta ble at transfer of care.
--- NOTE | 2018-11-13 21:00 | NUR ---
Patient exremely picky with her meals and takes forever for her to eat. Addendum: 11/14/18 at 0234 by Ashlyn Garrido RN Amended: Links added.
[2018-11-13] MEDS: polyethylene glycol 3350 17gm powd pack PO SCH (21:09)
[2018-11-13 22:00] VITALS: BP 116/79
[2018-11-14] VITALS (7 sets, daily range): BP systolic 99–117; BP diastolic 47–76
[2018-11-14] MEDS: midodrine 5mg tablet PO SCH ×3 (00:21→15:37)
[2018-11-14] MEDS: gabapentin 300mg capsule PO SCH ×3 (00:22→15:37)
[2018-11-14 05:41] LABS: BASOPHILS # (AUTO) 0.1 X10'3 (0-0.2); BASOPHILS % (AUTO) 1.1 % (0-1); EOSINOPHILS # (AUTO) 0.1 X10'3 (0-0.9); EOSINOPHILS % (AUTO) 0.7 % (0-6); HEMOGLOBIN 10.4 g/dl (12.0-16.0); LYMPHOCYTES # (AUTO) 3.4 X10'3 (1.1-4.8); LYMPHOCYTES % (AUTO) 38.7 % (21-51); MEAN CORPUSCULAR HEMOGLOBIN 29.9 PG (27.0-31.0); MEAN CORPUSCULAR HGB CONC 34.8 g/dL (33.0-36.5); MEAN CORPUSCULAR VOLUME 85.8 FL (78-98); MEAN PLATELET VOLUME 7.3 FL (7.4-10.4); MONOCYTES % (AUTO) 11.7 % (2-12); NEUTROPHILS # (AUTO) 4.2 X10'3 (1.8-7.7); NEUTROPHILS % (AUTO) 47.8 % (42-75); PLATELET COUNT 577 X10'3 (140-440); RED CELL DISTRIBUTION WIDTH 18.1 % (11.5-14.5); WHITE BLOOD COUNT 8.9 X10'3 (4.5-11.0)
[2018-11-14 05:42] LABS: ALBUMIN 2.6 G/DL (3.4-5.0); ANION GAP 5 (8-16); BLOOD UREA NITROGEN 20 MG/DL (7-18); BUN/CREATININE RATIO 24.1 (6.6-38.0); CHLORIDE 90 MMOL/L (99-107); CREATININE 0.83 MG/DL (0.40-0.90); GLUCOSE 77 MG/DL (70-104); POTASSIUM 3.8 MMOL/L (3.5-5.1); SODIUM 128 MMOL/L (135-145); TOTAL CARBON DIOXIDE 32.9 MMOL/L (24-32); eGFR 72 ML/MIN
[2018-11-14] MEDS: oxyCODONE IR 5mg (immed. release) tablet PO PRN ×4 (05:47→20:16)
--- NOTE | 2018-11-14 06:25 | NUR ---
Patient in room PCU 3012. I have received report from CHANCE Goldberg and had the opportunity to ask questions and assume patient care.
--- NOTE | 2018-11-14 06:35 | NUR ---
Patient in room PCU 3012. I have received report from Ashlyn FLETCHER and had the opportunity to ask questions and assume patient care.
--- NOTE | 2018-11-14 06:46 | NUR ---
Problems reprioritized. Patient report given, questions answered & plan of care reviewed with Yodit FLETCHER and Lore FLETCHER.
[2018-11-14] MEDS: furosemide 40mg tablet PO SCH ×3 (07:32→20:15)
[2018-11-14] MEDS: lactobacillus rhamnosus 10,000 MMU CELLS/CAPSULE PO SCH ×2 (07:32→20:15)
[2018-11-14] MEDS: spironolactone 50 MG tablet PO SCH ×2 (07:32→20:15)
[2018-11-14] MEDS: lactose-reduced food (Ensure Enlive) - 237ml bottle PO SCH ×2 (07:32→17:45)
[2018-11-14] MEDS: rifaximin 550mg tablet PO SCH ×2 (07:33→20:15)
[2018-11-14] MEDS: emollient combination-Eucerin 250 ML LOTION TP SCH ×2 (07:33→20:16)
--- NOTE | 2018-11-14 18:29 | NUR ---
Problems reprioritized. Patient report given, questions answered & plan of care reviewed with Efrain FLETCHER. Patient stable at transfer of care.
--- NOTE | 2018-11-14 18:30 | NUR ---
Problems reprioritized. Patient report given, questions answered & plan of care reviewed with CHANCE Lopez.
--- NOTE | 2018-11-14 18:30 | NUR ---
Patient in room PCU 3012. I have received report from CHANCE Monsivais and CHANCE Torrez and had the opportunity to ask questions and assume patient care.
--- NOTE | 2018-11-14 18:31 | NUR ---
Orientee documentation: I have reviewed and agree with interventions, assessments performed and documented by Lore FLETCHER. Orientee Medication Administration: For this medication-pass time frame, medication were reviewed, dispensed, administered and documented per hospital policy by Lore FLETCHER.
[2018-11-14] MEDS: polyethylene glycol 3350 17gm powd pack PO SCH (20:15)
[2018-11-15] MEDS: gabapentin 300mg capsule PO SCH ×3 (00:18→16:05)
[2018-11-15] MEDS: midodrine 5mg tablet PO SCH ×3 (00:19→16:05)
[2018-11-15] MEDS: oxyCODONE IR 5mg (immed. release) tablet PO PRN ×4 (00:20→20:52)
[2018-11-15 02:00] VITALS: BP 99/63
[2018-11-15 05:17] LABS: BASOPHILS # (AUTO) 0.1 X10'3 (0-0.2); EOSINOPHILS # (AUTO) 0.1 X10'3 (0-0.9); EOSINOPHILS % (AUTO) 1.4 % (0-6); HEMOGLOBIN 10.1 g/dl (12.0-16.0); MEAN CORPUSCULAR HEMOGLOBIN 29.3 PG (27.0-31.0); MONOCYTES # (AUTO) 0.9 X10'3 (0-0.9); NEUTROPHILS # (AUTO) 3.5 X10'3 (1.8-7.7); RED BLOOD COUNT 3.44 X10'6 (4.20-5.60)
[2018-11-15 05:21] LABS: BASOPHILS % (AUTO) 0.9 % (0-1); HEMATOCRIT 29.2 % (35.0-45.0); LYMPHOCYTES # (AUTO) 4.2 X10'3 (1.1-4.8); LYMPHOCYTES % (AUTO) 47.9 % (21-51); MEAN CORPUSCULAR HGB CONC 34.5 g/dL (33.0-36.5); MEAN PLATELET VOLUME 6.9 FL (7.4-10.4); MONOCYTES % (AUTO) 9.7 % (2-12); NEUTROPHILS % (AUTO) 40.1 % (42-75); PLATELET COUNT 529 X10'3 (140-440); RED CELL DISTRIBUTION WIDTH 17.8 % (11.5-14.5); WHITE BLOOD COUNT 8.8 X10'3 (4.5-11.0)
[2018-11-15 05:35] LABS: ALBUMIN 2.5 G/DL (3.4-5.0); ANION GAP 7 (8-16); BLOOD UREA NITROGEN 20 MG/DL (7-18); BUN/CREATININE RATIO 22.5 (6.6-38.0); CALCIUM 8.8 MG/DL (8.5-10.1); CHLORIDE 90 MMOL/L (99-107); CREATININE 0.89 MG/DL (0.40-0.90); GLUCOSE 115 MG/DL (70-104); POTASSIUM 3.7 MMOL/L (3.5-5.1); SODIUM 127 MMOL/L (135-145); TOTAL CARBON DIOXIDE 30.3 MMOL/L (24-32); eGFR 67 ML/MIN
--- NOTE | 2018-11-15 06:32 | NUR ---
Problems reprioritized. Patient report given, questions answered & plan of care reviewed with CHANCE Rangel.
--- NOTE | 2018-11-15 06:55 | NUR ---
Another nurse reported to me that a Respiratory therapist that went to room 3012 found the patient on the floor. Patient stated that she did not hit her head but her left elbow and left buttock. Left elbow has very small abrasion noted. Per patient statement, she was trying to reach for the pillow to put a pillow case and thought she might have lost balance. Patient call light was within her reach and her bed in low position. Fall risk arm band applied. Charge nurse Christa locke. Dr. Wu notified via [employer] system. Addendum: 11/15/18 at 1615 by Juan Carlos Salazar RN Yellow fall risk armband applied to patient and patient verbalized understanding that she is now fall risk.
[2018-11-15 07:00] VITALS: BP 98/60
--- NOTE | 2018-11-15 07:16 | NUR ---
Patient in room PCU 3012. I have received report from Efrain FLETCHER and had the opportunity to ask questions and assume patient care.
[2018-11-15] MEDS: rifaximin 550mg tablet PO SCH ×2 (07:37→20:54)
[2018-11-15] MEDS: lactobacillus rhamnosus 10,000 MMU CELLS/CAPSULE PO SCH ×2 (07:37→20:53)
[2018-11-15] MEDS: emollient combination-Eucerin 250 ML LOTION TP SCH ×2 (07:38→20:55)
[2018-11-15] MEDS: lactose-reduced food (Ensure Enlive) - 237ml bottle PO SCH ×2 (07:38→18:06)
[2018-11-15] MEDS: spironolactone 50 MG tablet PO SCH ×2 (08:00→20:54)
[2018-11-15] MEDS: furosemide 40mg tablet PO SCH ×3 (08:00→20:53)
[2018-11-15 08:29] LABS: GIANT PLATELET FEW; HYPOGRANULAR PLATELETS MODERATE; LARGE PLATELETS FEW; PLATELET ESTIMATE INCREASED
[2018-11-15] MEDS ORDERED: magnesium Cl slow-release 64mg tablet PO PRN (09:20)
[2018-11-15] MEDS ORDERED: potassium Cl 20 mEq SR tablet PO PRN ×2 (09:20)
[2018-11-15] MEDS ORDERED: magnesium 4gm in 100ml NS 100 ML IV PRN (09:20)
[2018-11-15] MEDS ORDERED: potassium CL 10mEq/100ml bag 100 ML IV PRN (09:20)
[2018-11-15 11:00] VITALS: BP 115/75
[2018-11-15 15:00] VITALS: BP 108/67
--- NOTE | 2018-11-15 17:01 | NUR ---
Received TC from pt requesting additional protein, pt agreeable to double protein TID, d/w dietary. Addendum: 11/15/18 at [address] Amended: Links added.
--- NOTE | 2018-11-15 18:50 | NUR ---
Problems reprioritized. Patient report given, questions answered & plan of care reviewed with Pat RN.
[2018-11-15 19:00] VITALS: BP 109/73
[2018-11-15] MEDS: polyethylene glycol 3350 17gm powd pack PO SCH (20:56)
[2018-11-15 23:00] VITALS: BP 107/72
[2018-11-16] VITALS (9 sets, daily range): BP systolic 95–132; BP diastolic 60–76
[2018-11-16] MEDS: midodrine 5mg tablet PO SCH ×4 (00:02→23:01)
[2018-11-16] MEDS: gabapentin 300mg capsule PO SCH ×3 (00:03→15:21)
[2018-11-16 05:20] LABS: BASOPHILS # (AUTO) 0.1 X10'3 (0-0.2); BASOPHILS % (AUTO) 1.4 % (0-1); EOSINOPHILS # (AUTO) 0.2 X10'3 (0-0.9); HEMATOCRIT 30.2 % (35.0-45.0); HEMOGLOBIN 10.3 g/dl (12.0-16.0); LYMPHOCYTES # (AUTO) 3.6 X10'3 (1.1-4.8); LYMPHOCYTES % (AUTO) 46.7 % (21-51); MEAN CORPUSCULAR HEMOGLOBIN 29.1 PG (27.0-31.0); MEAN CORPUSCULAR HGB CONC 34.2 g/dL (33.0-36.5); MEAN CORPUSCULAR VOLUME 85.1 FL (78-98); MONOCYTES # (AUTO) 0.7 X10'3 (0-0.9); MONOCYTES % (AUTO) 9.1 % (2-12); NEUTROPHILS # (AUTO) 3.1 X10'3 (1.8-7.7); NEUTROPHILS % (AUTO) 40.8 % (42-75); PLATELET COUNT 533 X10'3 (140-440); RED BLOOD COUNT 3.55 X10'6 (4.20-5.60); RED CELL DISTRIBUTION WIDTH 17.7 % (11.5-14.5); WHITE BLOOD COUNT 7.7 X10'3 (4.5-11.0)
[2018-11-16 05:40] LABS: ALANINE AMINOTRANSFERASE 17 U/L (12-78); ALBUMIN 2.6 G/DL (3.4-5.0); ALBUMIN/GLOBULIN RATIO 0.7 (1.1-1.5); ALKALINE PHOSPHATASE 68 IU/L (46-116); ANION GAP 5 (8-16); ASPARTATE AMINO TRANSFERASE 17 U/L (10-37); BILIRUBIN,TOTAL 0.2 MG/DL (0.1-1.0); BLOOD UREA NITROGEN 17 MG/DL (7-18); CHLORIDE 92 MMOL/L (99-107); CREATININE 0.74 MG/DL (0.40-0.90); GLUCOSE 86 MG/DL (70-104); MAGNESIUM 1.7 MG/DL (1.5-2.4); SODIUM 129 MMOL/L (135-145); TOTAL CARBON DIOXIDE 31.9 MMOL/L (24-32); TOTAL PROTEIN 6.3 G/DL (6.4-8.2); eGFR 82 ML/MIN
--- NOTE | 2018-11-16 06:57 | NUR ---
Patient in room PCU 3012. I have received report from Pat and had the opportunity to ask questions and assume patient care.
[2018-11-16] MEDS: oxyCODONE IR 5mg (immed. release) tablet PO PRN ×4 (07:00→19:50)
[2018-11-16] MEDS: lactobacillus rhamnosus 10,000 MMU CELLS/CAPSULE PO SCH ×2 (07:56→20:11)
[2018-11-16] MEDS: rifaximin 550mg tablet PO SCH ×2 (07:57→20:11)
[2018-11-16] MEDS: lactose-reduced food (Ensure Enlive) - 237ml bottle PO SCH ×2 (07:58→17:38)
[2018-11-16] MEDS: emollient combination-Eucerin 250 ML LOTION TP SCH ×2 (08:48→20:11)
[2018-11-16] MEDS: furosemide 40mg tablet PO SCH ×3 (08:57→20:11)
[2018-11-16] MEDS: spironolactone 50 MG tablet PO SCH ×2 (08:58→20:11)
--- NOTE | 2018-11-16 18:15 | NUR ---
Patient in room PCU 3012. I have received report from Inna FLETCHER and had the opportunity to ask questions and assume patient care. Addendum: 11/16/18 at 1829 by Elie Mcintyre RN 1815- Pt is in bed, eating dinner. picc is in. no s/s of distress
--- NOTE | 2018-11-16 18:17 | NUR ---
Problems reprioritized. Patient report given, questions answered & plan of care reviewed with
[2018-11-16] MEDS: polyethylene glycol 3350 17gm powd pack PO SCH (21:47)
[2018-11-17] VITALS (8 sets, daily range): BP systolic 87–111; BP diastolic 55–77
--- NOTE | 2018-11-17 01:54 | NUR ---
911 telecommunicator stated that pt had possible changes on her tele monitor. EKG taken per protocol. Vitals wnl as charted. Will continue to monitor.
[2018-11-17 04:23] LABS: BASOPHILS # (AUTO) 0.1 X10'3 (0-0.2); EOSINOPHILS # (AUTO) 0.1 X10'3 (0-0.9); EOSINOPHILS % (AUTO) 1.1 % (0-6); HEMATOCRIT 28.7 % (35.0-45.0); HEMOGLOBIN 9.8 g/dl (12.0-16.0); LYMPHOCYTES # (AUTO) 3.2 X10'3 (1.1-4.8); LYMPHOCYTES % (AUTO) 32.6 % (21-51); MEAN CORPUSCULAR HEMOGLOBIN 29.3 PG (27.0-31.0); MEAN CORPUSCULAR HGB CONC 34.3 g/dL (33.0-36.5); MEAN CORPUSCULAR VOLUME 85.4 FL (78-98); MEAN PLATELET VOLUME 6.6 FL (7.4-10.4); MONOCYTES # (AUTO) 0.9 X10'3 (0-0.9); NEUTROPHILS # (AUTO) 5.5 X10'3 (1.8-7.7); NEUTROPHILS % (AUTO) 56.3 % (42-75); PLATELET COUNT 465 X10'3 (140-440); RED BLOOD COUNT 3.36 X10'6 (4.20-5.60); RED CELL DISTRIBUTION WIDTH 17.6 % (11.5-14.5); WHITE BLOOD COUNT 9.9 X10'3 (4.5-11.0)
[2018-11-17 04:35] LABS: ALANINE AMINOTRANSFERASE 19 U/L (12-78); ALBUMIN 2.6 G/DL (3.4-5.0); ALBUMIN/GLOBULIN RATIO 0.7 (1.1-1.5); ALKALINE PHOSPHATASE 76 IU/L (46-116); ANION GAP 3 (8-16); ASPARTATE AMINO TRANSFERASE 20 U/L (10-37); BILIRUBIN,TOTAL 0.2 MG/DL (0.1-1.0); BLOOD UREA NITROGEN 25 MG/DL (7-18); BUN/CREATININE RATIO 25.8 (6.6-38.0); CALCIUM 9.2 MG/DL (8.5-10.1); CHLORIDE 93 MMOL/L (99-107); CREATININE 0.97 MG/DL (0.40-0.90); GLUCOSE 94 MG/DL (70-104); MAGNESIUM 1.6 MG/DL (1.5-2.4); PHOSPHORUS 4.3 MG/DL (2.3-4.5); POTASSIUM 4.2 MMOL/L (3.5-5.1); SODIUM 128 MMOL/L (135-145); TOTAL PROTEIN 6.5 G/DL (6.4-8.2); eGFR 60 ML/MIN
--- NOTE | 2018-11-17 06:08 | NUR ---
Problems reprioritized. Patient report given, questions answered & plan of care reviewed with Pepe and Nery RNs.
[2018-11-17] MEDS: oxyCODONE IR 5mg (immed. release) tablet PO PRN ×3 (06:25→20:53)
--- NOTE | 2018-11-17 06:27 | NUR ---
Patient in room PCU 3012. I have received report from Familia and had the opportunity to ask questions and assume patient care.
[2018-11-17] MEDS: lactobacillus rhamnosus 10,000 MMU CELLS/CAPSULE PO SCH ×2 (07:52→20:52)
[2018-11-17] MEDS: pregabalin 75mg capsule PO SCH ×2 (07:52→20:52)
[2018-11-17] MEDS: rifaximin 550mg tablet PO SCH ×2 (07:52→20:52)
[2018-11-17] MEDS: midodrine 5mg tablet PO SCH ×2 (07:53→15:54)
[2018-11-17] MEDS: spironolactone 50 MG tablet PO SCH ×2 (07:54→20:52)
[2018-11-17] MEDS: furosemide 40mg tablet PO SCH ×3 (07:54→20:52)
[2018-11-17] MEDS: lactose-reduced food (Ensure Enlive) - 237ml bottle PO SCH ×3 (07:56→18:50)
[2018-11-17] MEDS: emollient combination-Eucerin 250 ML LOTION TP SCH ×2 (07:56→20:53)
--- NOTE | 2018-11-17 09:37 | NUR ---
Reassessment: Pt continues with good PO intake documented with 75-100% of meals/ONS and receiving double protein and cottage cheese TID meeting nutrient needs. Pt often requesting foods not allowed on Na restricted diet, agreed to advance diet to regular however pt is not to receive salt packets, dietary and RN and diet has since been advanced. Pt persistently working with RD team and dietary staff for food preferences and pt has been provided with alternative menu list. Patient's weight continues on downward trend likely r/t fluid with 8,250 mL removed at last paracentesis. LBM 11/16. Will continue to follow. Rec: 1. Continue regular diet with no salt packets 2. chocolate ensure enlive BIDBD; cottage cheese with peaches, pears, or pineapple on the side TID; Extra sugar TID; no margarine, butter only; double protein TID 3. bariatric MVI for wound healing/taisha-en-y needs 4. routine bowel care 5. weekly wts 6. honor pt protein food preferences Addendum: 11/17/18 at [address] Amended: Links added.
--- NOTE | 2018-11-17 17:38 | NUR ---
Orientee documentation: I have reviewed and agree with all interventions, assessments performed and documented by CHANCE Gabriel.
--- NOTE | 2018-11-17 17:39 | NUR ---
Orientee Medication Administration: For this medication-pass time frame, all medication were reviewed, dispensed, administered and documented per hospital policy by CHANCE Gabriel.
--- NOTE | 2018-11-17 18:27 | NUR ---
Problems reprioritized. Patient report given, questions answered & plan of care reviewed with Lore.
[2018-11-17] MEDS: traZODone 50mg tablet PO SCH (20:52)
[2018-11-17] MEDS: polyethylene glycol 3350 17gm powd pack PO SCH (20:55)
[2018-11-18] MEDS: midodrine 5mg tablet PO SCH ×3 (00:32→17:09)
[2018-11-18 03:00] VITALS: BP 95/61
[2018-11-18] MEDS: oxyCODONE IR 5mg (immed. release) tablet PO PRN ×5 (04:22→21:12)
[2018-11-18 06:10] VITALS: BP 101/62
--- NOTE | 2018-11-18 06:48 | NUR ---
Patient in room PCU 3012. I have received report from JUAN FLETCHER and had the opportunity to ask questions and assume patient care.
--- NOTE | 2018-11-18 06:56 | NUR ---
Patient in room PCU 3012. I have received report from Mynor FLETCHER and had the opportunity to ask questions and assume patient care.
[2018-11-18] MEDS: furosemide 40mg tablet PO SCH ×3 (09:02→21:13)
[2018-11-18] MEDS: spironolactone 50 MG tablet PO SCH ×2 (09:02→21:12)
[2018-11-18] MEDS: pregabalin 75mg capsule PO SCH ×2 (09:02→21:12)
[2018-11-18] MEDS: lactobacillus rhamnosus 10,000 MMU CELLS/CAPSULE PO SCH ×2 (09:02→21:12)
[2018-11-18] MEDS: emollient combination-Eucerin 250 ML LOTION TP SCH ×2 (09:04→21:14)
[2018-11-18] MEDS: rifaximin 550mg tablet PO SCH ×2 (09:04→21:11)
[2018-11-18 10:00] VITALS: BP 94/64
--- NOTE | 2018-11-18 13:45 | NUR ---
Pt seen at beside to discuss meal trays. Pt ordering upwards of five drinks per meal. Pt agreed to limit beverages to a maximum of three per meal. Pt requests ONS change to just once a day with dionne d/w rose marie and RN. Pt continues to request salt with her meal trays despite current diet order of regular with no salt packets. Thorough discussion was had with patient about her diet order and she appeared to understand that she will not be able to get salt packets from rose marie, RN informed about this conversation. Pt also requests to no longer receive cottage cheese with fruit at breakfast but would like to continue receiving it KEILA d/w rose marie. Encouraged pt to call RD team for menu preferences, however administrative dietitian will still be visiting pt at bedside. Will continue to follow. Addendum: 11/18/18 at [address] Amended: Links added.
[2018-11-18 15:00] VITALS: BP 104/65
--- NOTE | 2018-11-18 18:10 | NUR ---
Patient report given to Mynor FLETCHER
[2018-11-18 19:00] VITALS: BP 108/80
[2018-11-18] MEDS: polyethylene glycol 3350 17gm powd pack PO SCH (21:00)
[2018-11-18] MEDS: Melatonin 3mg tablet PO PRN (21:12)
[2018-11-18] MEDS: traZODone 50mg tablet PO SCH (21:12)
[2018-11-18 23:00] VITALS: BP 87/57
[2018-11-19] MEDS: midodrine 5mg tablet PO SCH ×3 (00:39→16:06)
[2018-11-19] MEDS: oxyCODONE IR 5mg (immed. release) tablet PO PRN ×5 (02:57→20:44)
[2018-11-19 03:00] VITALS: BP 108/66
--- NOTE | 2018-11-19 06:38 | NUR ---
RECEIVED REPORT FROM JUAN FLETCHER
[2018-11-19 06:49] LABS: BASOPHILS # (AUTO) 0.1 X10'3 (0-0.2); BASOPHILS % (AUTO) 1.3 % (0-1); EOSINOPHILS # (AUTO) 0.1 X10'3 (0-0.9); EOSINOPHILS % (AUTO) 0.8 % (0-6); HEMATOCRIT 30.2 % (35.0-45.0); HEMOGLOBIN 10.1 g/dl (12.0-16.0); LYMPHOCYTES # (AUTO) 3.3 X10'3 (1.1-4.8); LYMPHOCYTES % (AUTO) 29.6 % (21-51); MEAN CORPUSCULAR HEMOGLOBIN 28.8 PG (27.0-31.0); MEAN CORPUSCULAR HGB CONC 33.3 g/dL (33.0-36.5); MEAN CORPUSCULAR VOLUME 86.3 FL (78-98); MEAN PLATELET VOLUME 7.1 FL (7.4-10.4); MONOCYTES # (AUTO) 0.9 X10'3 (0-0.9); MONOCYTES % (AUTO) 7.9 % (2-12); NEUTROPHILS # (AUTO) 6.7 X10'3 (1.8-7.7); NEUTROPHILS % (AUTO) 60.4 % (42-75); PLATELET COUNT 492 X10'3 (140-440); RED CELL DISTRIBUTION WIDTH 18.2 % (11.5-14.5); WHITE BLOOD COUNT 11.1 X10'3 (4.5-11.0)
[2018-11-19 07:00] LABS: ALANINE AMINOTRANSFERASE 22 U/L (12-78); ALBUMIN 2.8 G/DL (3.4-5.0); ALBUMIN/GLOBULIN RATIO 0.7 (1.1-1.5); ALKALINE PHOSPHATASE 69 IU/L (46-116); ANION GAP 5 (8-16); ASPARTATE AMINO TRANSFERASE 23 U/L (10-37); BILIRUBIN,TOTAL 0.2 MG/DL (0.1-1.0); BLOOD UREA NITROGEN 25 MG/DL (7-18); BUN/CREATININE RATIO 28.1 (6.6-38.0); CALCIUM 9.1 MG/DL (8.5-10.1); CHLORIDE 94 MMOL/L (99-107); CREATININE 0.89 MG/DL (0.40-0.90); GLUCOSE 84 MG/DL (70-104); MAGNESIUM 1.6 MG/DL (1.5-2.4); PHOSPHORUS 4.8 MG/DL (2.3-4.5); POTASSIUM 4.6 MMOL/L (3.5-5.1); SODIUM 130 MMOL/L (135-145); TOTAL CARBON DIOXIDE 31.3 MMOL/L (24-32); eGFR 67 ML/MIN
[2018-11-19 07:01] VITALS: BP 90/58
[2018-11-19] MEDS: lactobacillus rhamnosus 10,000 MMU CELLS/CAPSULE PO SCH ×2 (07:16→20:45)
[2018-11-19] MEDS: rifaximin 550mg tablet PO SCH ×2 (07:17→20:44)
[2018-11-19] MEDS: furosemide 40mg tablet PO SCH ×3 (07:17→20:44)
[2018-11-19] MEDS: pregabalin 75mg capsule PO SCH ×2 (07:17→20:45)
[2018-11-19] MEDS: spironolactone 50 MG tablet PO SCH ×2 (07:19→20:44)
[2018-11-19] MEDS: emollient combination-Eucerin 250 ML LOTION TP SCH ×2 (07:20→20:44)
[2018-11-19] MEDS: lactose-reduced food (Ensure Enlive) - 237ml bottle PO SCH (08:26)
--- NOTE | 2018-11-19 10:19 | NUR ---
Medication was unable to scan this morning. The scanner did not work. Will try new computer for new patient.
[2018-11-19 11:00] VITALS: BP 102/69
--- NOTE | 2018-11-19 11:52 | NUR ---
SCANNER DID NOT WORK!!!! WILL NOT SCAN.
[2018-11-19 15:00] VITALS: BP 104/76
--- NOTE | 2018-11-19 15:15 | NUR ---
F/u: Pt contacted GARY regarding food preferences. Pt would no longer like ensures w/ meals; GARY d/w RN and dietary notified. Pt reports loving quality of food "better than most restaurants." Pt is having friend bring in premier proteins from outside. Addendum: 11/19/18 at [address] Amended: Links added.
[2018-11-19 19:00] VITALS: BP 106/64
[2018-11-19] MEDS: polyethylene glycol 3350 17gm powd pack PO SCH (20:45)
[2018-11-19] MEDS: Melatonin 3mg tablet PO PRN (20:45)
[2018-11-19] MEDS: traZODone 50mg tablet PO SCH (20:45)
[2018-11-19 23:00] VITALS: BP 90/60
[2018-11-20] MEDS: midodrine 5mg tablet PO SCH ×3 (00:34→16:42)
[2018-11-20 03:00] VITALS: BP 96/71
[2018-11-20 06:00] VITALS: BP 110/73
--- NOTE | 2018-11-20 06:33 | NUR ---
Problems reprioritized. Patient report given, questions answered & plan of care reviewed with CHANCE Monsivais.
[2018-11-20] MEDS: pregabalin 75mg capsule PO SCH ×2 (07:14→20:42)
[2018-11-20] MEDS: rifaximin 550mg tablet PO SCH ×2 (07:14→20:42)
[2018-11-20] MEDS: furosemide 40mg tablet PO SCH ×3 (07:14→20:42)
[2018-11-20] MEDS: spironolactone 50 MG tablet PO SCH ×2 (07:14→20:42)
[2018-11-20] MEDS: emollient combination-Eucerin 250 ML LOTION TP SCH ×2 (07:14→20:43)
[2018-11-20] MEDS: lactobacillus rhamnosus 10,000 MMU CELLS/CAPSULE PO SCH ×2 (07:14→20:42)
[2018-11-20] MEDS: oxyCODONE IR 5mg (immed. release) tablet PO PRN ×4 (07:15→22:03)
[2018-11-20] MEDS: lactose-reduced food (Ensure Enlive) - 237ml bottle PO SCH (07:30)
[2018-11-20 11:00] VITALS: BP 103/68
[2018-11-20 15:26] VITALS: BP 108/69
[2018-11-20 18:00] VITALS: BP 106/71
--- NOTE | 2018-11-20 18:38 | NUR ---
Patient in room U 3012. I have received report from CHANCE Monsivais and had the opportunity to ask questions and assume patient care. Addendum: 11/20/18 at 1838 by Val Archibald RN Amended: Links added.
[2018-11-20] MEDS: traZODone 50mg tablet PO SCH (20:42)
[2018-11-20 22:00] VITALS: BP 101/63
[2018-11-20] MEDS: ondansetron/PF 4mg/2ml inj IV PRN (22:03)
[2018-11-20] MEDS: polyethylene glycol 3350 17gm powd pack PO SCH (22:14)
[2018-11-21] MEDS: midodrine 5mg tablet PO SCH ×3 (00:17→17:28)
--- NOTE | 2018-11-21 01:17 | NUR ---
patient found to have a bottle of pills in her drawers and stated that she took one of the blue tab, taken down to pharmacy
[2018-11-21 02:00] VITALS: BP 103/66
--- NOTE | 2018-11-21 06:15 | NUR ---
Patient in room PCU 3012. I have received report from Beatrice FLETCHER and had the opportunity to ask questions and assume patient care.
--- NOTE | 2018-11-21 06:15 | NUR ---
Problems reprioritized. Patient report given, questions answered & plan of care reviewed with CHANCE BUCK. Addendum: 11/21/18 at 0615 by Val Archibald RN Amended: Links added.
--- NOTE | 2018-11-21 06:30 | NUR ---
Patient in room PCU 3012. I have received report from Val FLETCHER and had the opportunity to ask questions and assume patient care.
[2018-11-21 07:12] VITALS: BP 105/61
[2018-11-21] MEDS: lactose-reduced food (Ensure Enlive) - 237ml bottle PO SCH (07:30)
[2018-11-21] MEDS: spironolactone 50 MG tablet PO SCH ×2 (07:50→21:56)
[2018-11-21] MEDS: lactobacillus rhamnosus 10,000 MMU CELLS/CAPSULE PO SCH ×2 (07:50→21:57)
[2018-11-21] MEDS: rifaximin 550mg tablet PO SCH (07:50)
[2018-11-21] MEDS: pregabalin 75mg capsule PO SCH ×2 (07:50→21:58)
[2018-11-21] MEDS: furosemide 40mg tablet PO SCH ×3 (07:51→21:58)
[2018-11-21] MEDS: oxyCODONE IR 5mg (immed. release) tablet PO PRN ×3 (07:52→18:26)
[2018-11-21] MEDS: emollient combination-Eucerin 250 ML LOTION TP SCH ×2 (07:55→22:04)
[2018-11-21 12:15] VITALS: BP 120/74
[2018-11-21 15:00] VITALS: BP 107/68
--- NOTE | 2018-11-21 15:45 | NUR ---
Problems reprioritized. Patient report given, questions answered & plan of care reviewed with Iman FLETCHER from Surgical.
--- NOTE | 2018-11-21 15:49 | NUR ---
Received report from CHANCE Wong. Awaiting patient arrival.
--- NOTE | 2018-11-21 16:58 | NUR ---
1500 med reassessment not done because patient was on telemetry floor at this time. patient arrived to [place] at 1700.
[2018-11-21 17:00] VITALS: BP 111/72
--- NOTE | 2018-11-21 17:00 | NUR ---
Patient arrived to the floor. Vital signs stable. Lungs clear. stain applicator removed by RN that brought her. skin check completed on transfer.
--- NOTE | 2018-11-21 18:24 | NUR ---
Problems reprioritized. Patient report given, questions answered & plan of care reviewed with Chely Mo RN.
--- NOTE | 2018-11-21 18:30 | NUR ---
Patient in room [facility]. I have received report from ALAN FLETCHER and had the opportunity to ask questions and assume patient care.
[2018-11-21 20:00] VITALS: BP 107/75
[2018-11-21] MEDS: traZODone 50mg tablet PO SCH (21:57)
[2018-11-21] MEDS: polyethylene glycol 3350 17gm powd pack PO SCH (21:59)
[2018-11-22] VITALS: BP 100/65
[2018-11-22] MEDS: midodrine 5mg tablet PO SCH ×3 (00:18→17:01)
[2018-11-22] MEDS: rifaximin 550mg tablet PO SCH ×3 (00:19→20:31)
[2018-11-22] MEDS: oxyCODONE IR 5mg (immed. release) tablet PO PRN ×5 (00:22→21:13)
--- NOTE | 2018-11-22 06:30 | NUR ---
Problems reprioritized. Patient report given, questions answered & plan of care reviewed with ALAN FLETCHER.
[2018-11-22 07:08] VITALS: BP 102/65
[2018-11-22] MEDS: lactose-reduced food (Ensure Enlive) - 237ml bottle PO SCH (07:30)
[2018-11-22] MEDS: emollient combination-Eucerin 250 ML LOTION TP SCH ×2 (08:50→20:36)
[2018-11-22] MEDS: furosemide 40mg tablet PO SCH ×3 (08:51→20:31)
[2018-11-22] MEDS: lactobacillus rhamnosus 10,000 MMU CELLS/CAPSULE PO SCH ×2 (08:51→20:31)
[2018-11-22] MEDS: pregabalin 75mg capsule PO SCH ×2 (08:51→20:31)
[2018-11-22] MEDS: spironolactone 50 MG tablet PO SCH ×2 (08:51→20:31)
[2018-11-22 11:47] VITALS: BP 113/82
--- NOTE | 2018-11-22 16:59 | NUR ---
WOUND INFECTION EDUCATION PROVIDED BY WOUND CARE 1. Patient instructed to call their primary doctor, or go the ED immediately if any of the following symptoms occur: * Increased pain in wound * Increase in drainage from the wound * Redness in the skin surrounding the wound * Warmth in the skin surrounding the wound * Bleeding from the wound * Temperature of 101 or greater 2. If any of these occur while in the hospital tell a nurse immediately. Addendum: 11/22/18 at 1659 by Shannan Viramontes RN Amended: Links added.
--- NOTE | 2018-11-22 18:03 | NUR ---
Received report from CHANCE Stevenson. Patient is awake and alert on room air, in no apparent distress. Call light and items of frequent use within reach. Will continue to monitor.
--- NOTE | 2018-11-22 18:12 | NUR ---
Problems reprioritized. Patient report given, questions answered & plan of care reviewed with CHANCE Enriquez and CHANCE Louie.
[2018-11-22 20:00] VITALS: BP 102/69
[2018-11-22] MEDS: polyethylene glycol 3350 17gm powd pack PO SCH (20:30)
[2018-11-22] MEDS: traZODone 50mg tablet PO SCH (20:31)
[2018-11-23] VITALS: BP 92/60
[2018-11-23] MEDS: midodrine 5mg tablet PO SCH ×3 (00:09→16:21)
--- NOTE | 2018-11-23 06:12 | NUR ---
Problems reprioritized. Patient report given, questions answered & plan of care reviewed with CHANCE Cheatham. Addendum: 11/23/18 at 0619 by Jacy Nation RN Report given to CHANCE Kessler
--- NOTE | 2018-11-23 06:46 | NUR ---
Patient in room [facility]. I have received report from Zoe FLETCHER and Jacy FLETCHER and had the opportunity to ask questions and assume patient care.
[2018-11-23 07:00] VITALS: BP 95/62
[2018-11-23] MEDS: lactose-reduced food (Ensure Enlive) - 237ml bottle PO SCH (07:30)
[2018-11-23] MEDS: pregabalin 75mg capsule PO SCH ×2 (07:35→20:15)
[2018-11-23] MEDS: lactobacillus rhamnosus 10,000 MMU CELLS/CAPSULE PO SCH ×2 (07:35→20:14)
[2018-11-23] MEDS: oxyCODONE IR 5mg (immed. release) tablet PO PRN ×4 (07:36→22:05)
[2018-11-23] MEDS: emollient combination-Eucerin 250 ML LOTION TP SCH ×2 (07:37→20:16)
[2018-11-23] MEDS: rifaximin 550mg tablet PO SCH ×2 (07:39→20:14)
--- NOTE | 2018-11-23 07:42 | NUR ---
Patient did not have Ensure on her tray, according to patient she had told dietitian that she does not want ensure.
[2018-11-23] MEDS: furosemide 40mg tablet PO SCH ×3 (08:00→20:15)
[2018-11-23] MEDS: spironolactone 50 MG tablet PO SCH ×2 (08:00→20:15)
[2018-11-23 11:00] VITALS: BP 107/72
--- NOTE | 2018-11-23 11:18 | NUR ---
Removed patient's wick after myself and Dr. Hutson explained to her that having wick longer can cause skin breakdown. Per Dr. Hutson, patient can have wick for tonight only. Removed patient's fall risk arm band per patient's request and Dr. Hutson's instruction. Encouraged patient to use call light when need help. Explained to patient that she still at risk for fall because she is on Narcotic.
--- NOTE | 2018-11-23 11:46 | NUR ---
Discontinued PICC line on patient's right upper arm, patient tolerated the procedure, tip intact
--- NOTE | 2018-11-23 15:52 | NUR ---
reassessment: Pt PO 75-100% regular diet meeting needs w/ premier protein brought in from outside. LBM 11/23. No nutrition concerns at this time. Rec: 1. Continue regular diet with no salt packets 2. chocolate ensure enlive QD at breakfast; cottage cheese with peaches, pears, or pineapple on the side BIDLD; Extra sugar TID; no margarine, butter only; double protein TID 3. bariatric MVI for wound healing/taisha-en-y needs 4. routine bowel care 5. weekly wts 6. honor pt protein food preferences; premier protein from outside Addendum: 11/23/18 at [address] Amended: Links added.
--- NOTE | 2018-11-23 18:06 | NUR ---
Received report from CHANCE Rangel. Patient is awake and alert on room air, in no apparent distress. Call light and items of frequent use within reach, will continue to monitor.
[2018-11-23 18:30] VITALS: BP 102/70
--- NOTE | 2018-11-23 18:48 | NUR ---
Problems reprioritized. Patient report given, questions answered & plan of care reviewed with Zoe FLETCHER.
[2018-11-23 20:00] VITALS: BP 102/70
[2018-11-23] MEDS: polyethylene glycol 3350 17gm powd pack PO SCH (20:14)
[2018-11-23] MEDS: traZODone 50mg tablet PO SCH (20:15)
[2018-11-24] MEDS: midodrine 5mg tablet PO SCH ×3 (00:52→15:52)
[2018-11-24] MEDS: oxyCODONE IR 5mg (immed. release) tablet PO PRN ×4 (05:44→20:34)
--- NOTE | 2018-11-24 06:41 | NUR ---
Problems reprioritized. Patient report given, questions answered & plan of care reviewed with CHANCE Fritz.
--- NOTE | 2018-11-24 06:59 | NUR ---
Patient in room [facility]. I have received report from MATT FLETCHER and had the opportunity to ask questions and assume patient care.
[2018-11-24 07:00] VITALS: BP 111/67
[2018-11-24] MEDS: lactose-reduced food (Ensure Enlive) - 237ml bottle PO SCH (07:30)
[2018-11-24] MEDS: rifaximin 550mg tablet PO SCH ×2 (08:00→20:34)
[2018-11-24] MEDS: pregabalin 75mg capsule PO SCH ×2 (08:31→20:34)
[2018-11-24] MEDS: spironolactone 50 MG tablet PO SCH ×2 (08:31→20:34)
[2018-11-24] MEDS: lactobacillus rhamnosus 10,000 MMU CELLS/CAPSULE PO SCH ×2 (08:31→20:35)
[2018-11-24] MEDS: furosemide 40mg tablet PO SCH ×3 (08:32→23:00)
[2018-11-24] MEDS: emollient combination-Eucerin 250 ML LOTION TP SCH ×2 (08:33→23:00)
[2018-11-24 11:00] VITALS: BP 104/63
--- NOTE | 2018-11-24 14:35 | NUR ---
Received TC from pt to discuss meal trays. Pt agrees to d/c cottage cheese TID and to instead receive deli meat with breakfast, tuna salad in a bowl with lunch, chicken salad in a bowl with dinner, d/w with dietary. Pt keeping food at bedside, informed her that storing food at bedside is not proper food storage practice as we can not be sure that it is staying out of the temperature danger zone, discussed this with RN as well. Addendum: 11/24/18 at [address] Amended: Links added.
--- NOTE | 2018-11-24 18:10 | NUR ---
Patient in room [facility]. I have received report from Catrina FLETCHER and had the opportunity to ask questions and assume patient care.
[2018-11-24 20:00] VITALS: BP 117/69
[2018-11-24] MEDS: traZODone 50mg tablet PO SCH (20:35)
[2018-11-24] MEDS: polyethylene glycol 3350 17gm powd pack PO SCH (20:35)
[2018-11-25] VITALS: BP 97/61
[2018-11-25] MEDS: midodrine 5mg tablet PO SCH ×3 (00:49→16:12)
[2018-11-25] MEDS: oxyCODONE IR 5mg (immed. release) tablet PO PRN ×5 (01:17→20:50)
--- NOTE | 2018-11-25 06:50 | NUR ---
Problems reprioritized. Patient report given, questions answered & plan of care reviewed with [place] FLETCHER.
--- NOTE | 2018-11-25 06:52 | NUR ---
Patient in room [facility]. I have received report from Siri FLETCHER and had the opportunity to ask questions and assume patient care.
[2018-11-25 07:00] VITALS: BP 104/67
[2018-11-25] MEDS: lactose-reduced food (Ensure Enlive) - 237ml bottle PO SCH (07:30)
[2018-11-25] MEDS: furosemide 40mg tablet PO SCH ×3 (07:51→20:50)
[2018-11-25] MEDS: rifaximin 550mg tablet PO SCH ×2 (07:51→22:23)
[2018-11-25] MEDS: lactobacillus rhamnosus 10,000 MMU CELLS/CAPSULE PO SCH ×2 (07:51→20:50)
[2018-11-25] MEDS: spironolactone 50 MG tablet PO SCH ×2 (07:51→20:50)
[2018-11-25] MEDS: pregabalin 75mg capsule PO SCH ×2 (07:51→20:50)
[2018-11-25] MEDS: emollient combination-Eucerin 250 ML LOTION TP SCH ×2 (07:52→20:58)
[2018-11-25 11:00] VITALS: BP 104/70
--- NOTE | 2018-11-25 14:00 | NUR ---
patient calling down to kitchen ordering food, and requesting alot of attention from kitchen, patient advised that she cannot do this , but to ask staff to order food for her. Still collecting food and drink in room. Patient advised she cannot keep milk and perishable food in room. Patient compliant. showered today, up ambulating indep. Given pain relief q4hrly with effect. Tearful at times when she spoke about her family, and difficulties with . Will continue to monitor.
--- NOTE | 2018-11-25 18:42 | NUR ---
Problems reprioritized. Patient report given, questions answered & plan of care reviewed with Mary FLETCHER.
[2018-11-25 19:00] VITALS: BP 113/67
[2018-11-25] MEDS: traZODone 50mg tablet PO SCH (20:50)
[2018-11-25] MEDS: polyethylene glycol 3350 17gm powd pack PO SCH (20:51)
[2018-11-26] VITALS: BP 95/59
[2018-11-26] MEDS: midodrine 5mg tablet PO SCH ×4 (00:08→23:16)
[2018-11-26] MEDS: oxyCODONE IR 5mg (immed. release) tablet PO PRN ×5 (04:50→23:21)
--- NOTE | 2018-11-26 06:35 | NUR ---
Problems reprioritized. Patient report given, questions answered & plan of care reviewed with [place] FLETCHER. Addendum: 11/26/18 at 0635 by Siri Black RN Amended: Links added.
[2018-11-26 07:00] VITALS: BP 114/76
--- NOTE | 2018-11-26 07:08 | NUR ---
Patient in room [facility]. I have received report from fatimah FLETCHER and had the opportunity to ask questions and assume patient care.
[2018-11-26] MEDS: rifaximin 550mg tablet PO SCH ×2 (07:52→19:56)
[2018-11-26] MEDS: pregabalin 75mg capsule PO SCH ×2 (07:52→19:56)
[2018-11-26] MEDS: spironolactone 50 MG tablet PO SCH ×2 (07:52→19:56)
[2018-11-26] MEDS: furosemide 40mg tablet PO SCH ×3 (07:52→21:16)
[2018-11-26] MEDS: lactobacillus rhamnosus 10,000 MMU CELLS/CAPSULE PO SCH ×2 (07:52→19:56)
[2018-11-26] MEDS: emollient combination-Eucerin 250 ML LOTION TP SCH ×2 (07:54→21:16)
[2018-11-26] MEDS: lactose-reduced food (Ensure Enlive) - 237ml bottle PO SCH (07:54)
[2018-11-26 11:30] VITALS: BP 121/87
[2018-11-26 13:03] VITALS: BP 117/71
--- NOTE | 2018-11-26 17:25 | NUR ---
up and about in room. All cares given. medicated q4hrly for pain with effect. Seen by Dr ayala, no new orders. will continue to monitor.
[2018-11-26 18:00] VITALS: BP 100/58
--- NOTE | 2018-11-26 18:54 | NUR ---
Problems reprioritized. Patient report given, questions answered & plan of care reviewed with REJI Basilio RN.
--- NOTE | 2018-11-26 18:57 | NUR ---
Patient in room [facility]. I have received report from CHANCE Lovelace and had the opportunity to ask questions and assume patient care. Addendum: 11/26/18 at 1857 by Val Archibald RN Amended: Links added.
[2018-11-26] MEDS: traZODone 50mg tablet PO SCH (19:56)
[2018-11-26] MEDS: polyethylene glycol 3350 17gm powd pack PO SCH (23:16)
[2018-11-27] VITALS: BP 95/48
--- NOTE | 2018-11-27 06:17 | NUR ---
Problems reprioritized. Patient report given, questions answered & plan of care reviewed with CHANCE Persaud. Addendum: 11/27/18 at 0617 by Val Archibald RN Amended: Links added.
[2018-11-27] MEDS: lactobacillus rhamnosus 10,000 MMU CELLS/CAPSULE PO SCH ×2 (07:07→20:47)
[2018-11-27] MEDS: rifaximin 550mg tablet PO SCH ×2 (07:07→20:48)
[2018-11-27] MEDS: pregabalin 75mg capsule PO SCH ×2 (07:07→20:48)
[2018-11-27] MEDS: spironolactone 50 MG tablet PO SCH ×2 (07:07→20:48)
[2018-11-27] MEDS: midodrine 5mg tablet PO SCH ×2 (07:07→16:21)
[2018-11-27] MEDS: furosemide 40mg tablet PO SCH ×3 (07:07→20:48)
[2018-11-27] MEDS: oxyCODONE IR 5mg (immed. release) tablet PO PRN ×4 (07:08→20:34)
[2018-11-27] MEDS: lactose-reduced food (Ensure Enlive) - 237ml bottle PO SCH (07:30)
[2018-11-27 08:00] VITALS: BP 98/59
[2018-11-27] MEDS: emollient combination-Eucerin 250 ML LOTION TP SCH ×2 (08:00→20:49)
[2018-11-27 11:00] VITALS: BP 104/72
[2018-11-27 19:00] VITALS: BP 108/75
[2018-11-27] MEDS: polyethylene glycol 3350 17gm powd pack PO SCH (20:48)
[2018-11-27] MEDS: traZODone 50mg tablet PO SCH (20:48)
[2018-11-28] VITALS: BP 97/62
[2018-11-28] MEDS: midodrine 5mg tablet PO SCH ×4 (00:17→23:47)
[2018-11-28] MEDS: oxyCODONE IR 5mg (immed. release) tablet PO PRN ×5 (00:32→23:47)
--- NOTE | 2018-11-28 06:30 | NUR ---
Patient in room [facility]. I have received report from CHANCE Olvera and had the opportunity to ask questions and assume patient care.
[2018-11-28 07:00] VITALS: BP 90/57
[2018-11-28] MEDS: lactose-reduced food (Ensure Enlive) - 237ml bottle PO SCH (07:30)
[2018-11-28] MEDS: furosemide 40mg tablet PO SCH ×3 (08:00→20:44)
[2018-11-28] MEDS: pregabalin 75mg capsule PO SCH ×2 (08:04→20:43)
[2018-11-28] MEDS: lactobacillus rhamnosus 10,000 MMU CELLS/CAPSULE PO SCH ×2 (08:04→20:44)
[2018-11-28] MEDS: emollient combination-Eucerin 250 ML LOTION TP SCH ×2 (08:06→20:45)
[2018-11-28] MEDS: rifaximin 550mg tablet PO SCH ×2 (09:17→20:44)
[2018-11-28 11:00] VITALS: BP 126/89
--- NOTE | 2018-11-28 13:48 | NUR ---
WOUND INFECTION EDUCATION PROVIDED BY WOUND CARE 1. Patient instructed to call their primary doctor, or go the ED immediately if any of the following symptoms occur: * Increased pain in wound * Increase in drainage from the wound * Redness in the skin surrounding the wound * Warmth in the skin surrounding the wound * Bleeding from the wound * Temperature of 101 or greater 2. If any of these occur while in the hospital tell a nurse immediately. Addendum: 11/28/18 at 1348 by Shannan Viramontes RN Amended: Links added.
--- NOTE | 2018-11-28 18:17 | NUR ---
Problems reprioritized. Patient report given, questions answered & plan of care reviewed with CHANCE Love.
--- NOTE | 2018-11-28 18:37 | NUR ---
Patient in room [facility]. I have received report from Eva FLETCHER and had the opportunity to ask questions and assume patient care.
[2018-11-28 20:00] VITALS: BP 115/72
[2018-11-28] MEDS: polyethylene glycol 3350 17gm powd pack PO SCH (20:43)
[2018-11-28] MEDS: traZODone 50mg tablet PO SCH (20:43)
[2018-11-28] MEDS: spironolactone 50 MG tablet PO SCH (20:44)
[2018-11-29 04:09] VITALS: BP 102/61
[2018-11-29] MEDS: oxyCODONE IR 5mg (immed. release) tablet PO PRN ×5 (04:36→23:31)
--- NOTE | 2018-11-29 06:13 | NUR ---
Problems reprioritized. Patient report given, questions answered & plan of care reviewed with Eva RN.
--- NOTE | 2018-11-29 06:13 | NUR ---
Patient in room [facility]. I have received report from CHANCE DIEHL and had the opportunity to ask questions and assume patient care.
[2018-11-29] MEDS: lactose-reduced food (Ensure Enlive) - 237ml bottle PO SCH (07:30)
[2018-11-29] MEDS: furosemide 40mg tablet PO SCH ×3 (07:49→21:03)
[2018-11-29] MEDS: pregabalin 75mg capsule PO SCH ×2 (07:49→21:02)
[2018-11-29] MEDS: rifaximin 550mg tablet PO SCH ×2 (07:49→21:02)
[2018-11-29] MEDS: spironolactone 50 MG tablet PO SCH ×2 (07:49→21:03)
[2018-11-29] MEDS: midodrine 5mg tablet PO SCH ×3 (07:49→23:31)
[2018-11-29] MEDS: lactobacillus rhamnosus 10,000 MMU CELLS/CAPSULE PO SCH ×2 (07:49→21:02)
[2018-11-29] MEDS: emollient combination-Eucerin 250 ML LOTION TP SCH ×2 (07:51→20:00)
[2018-11-29 08:00] VITALS: BP 101/66
[2018-11-29 12:00] VITALS: BP 109/74
--- NOTE | 2018-11-29 12:14 | NUR ---
Reassessment: Pt meeting nutrient needs with documented 100% PO intake. [facility] 11/27. Pt continues awaiting placement. Will continue to follow. Rec: 1. Continue regular diet with no salt packets 2. Deli meat at breakfast, tuna salad in a bowl with lunch, chicken salad in a bowl with dinner; Extra sugar TID; no margarine, butter only; double protein TID 3. bariatric MVI for wound healing/taisha-en-y needs 4. routine bowel care 5. weekly wts 6. honor pt protein food preferences; premier protein from outside Addendum: 11/29/18 at [address] Amended: Links added.
--- NOTE | 2018-11-29 18:27 | NUR ---
Problems reprioritized. Patient report given, questions answered & plan of care reviewed with CHANCE DIEHL.
--- NOTE | 2018-11-29 18:47 | NUR ---
Patient in room [facility]. I have received report from Eva FLETCHER and had the opportunity to ask questions and assume patient care.
[2018-11-29 20:00] VITALS: BP 100/65
[2018-11-29] MEDS: traZODone 50mg tablet PO SCH (21:02)
[2018-11-29] MEDS: polyethylene glycol 3350 17gm powd pack PO SCH (21:03)
[2018-11-29 23:46] VITALS: BP 96/57
[2018-11-30] MEDS: oxyCODONE IR 5mg (immed. release) tablet PO PRN ×2 (03:40→08:41)
--- NOTE | 2018-11-30 06:15 | NUR ---
Patient in room [facility]. I have received report from CHANCE Love and had the opportunity to ask questions and assume patient care.
--- NOTE | 2018-11-30 06:22 | NUR ---
Problems reprioritized. Patient report given, questions answered & plan of care reviewed with Shannan FLETCHER.
[2018-11-30 07:24] VITALS: BP 106/71
[2018-11-30] MEDS: lactose-reduced food (Ensure Enlive) - 237ml bottle PO SCH (07:30)
[2018-11-30] MEDS: spironolactone 50 MG tablet PO SCH ×2 (08:36→19:35)
[2018-11-30] MEDS: furosemide 40mg tablet PO SCH ×2 (08:36→13:17)
[2018-11-30] MEDS: pregabalin 75mg capsule PO SCH ×2 (08:36→19:36)
[2018-11-30] MEDS: lactobacillus rhamnosus 10,000 MMU CELLS/CAPSULE PO SCH ×2 (08:36→19:35)
[2018-11-30] MEDS: midodrine 5mg tablet PO SCH ×2 (08:38→16:56)
[2018-11-30] MEDS: rifaximin 550mg tablet PO SCH ×2 (08:38→19:40)
[2018-11-30] MEDS: emollient combination-Eucerin 250 ML LOTION TP SCH ×2 (08:39→19:44)
[2018-11-30 11:32] VITALS: BP 102/68
--- NOTE | 2018-11-30 18:10 | NUR ---
Problems reprioritized. Patient report given, questions answered & plan of care reviewed with CHANCE Lovelace.
[2018-11-30 19:00] VITALS: BP 113/74
--- NOTE | 2018-11-30 19:07 | NUR ---
Patient in room [facility]. I have received report from Shannan FLETCHER and had the opportunity to ask questions and assume patient care.
[2018-11-30] MEDS: acetaminophen 325mg tablet PO PRN (19:43)
[2018-12-01] MEDS: midodrine 5mg tablet PO SCH ×3 (00:30→15:11)
[2018-12-01] MEDS: furosemide 40mg tablet PO SCH ×4 (00:31→21:00)
[2018-12-01] MEDS: polyethylene glycol 3350 17gm powd pack PO SCH ×2 (00:31→22:40)
[2018-12-01] MEDS: traZODone 50mg tablet PO SCH ×2 (00:31→22:40)
[2018-12-01] MEDS: acetaminophen 325mg tablet PO PRN ×2 (04:34→19:31)
--- NOTE | 2018-12-01 05:43 | NUR ---
patient slept several hours this shift. Medicated for pain x2. wanting meds reviewed in am. Will continue to monitor.
--- NOTE | 2018-12-01 05:44 | NUR ---
Problems reprioritized. Patient report given, questions answered & plan of care reviewed with Paige FLETCHER.
[2018-12-01 07:00] VITALS: BP 93/55
[2018-12-01] MEDS: lactose-reduced food (Ensure Enlive) - 237ml bottle PO SCH (07:30)
[2018-12-01] MEDS: spironolactone 50 MG tablet PO SCH ×2 (07:34→20:00)
[2018-12-01] MEDS: rifaximin 550mg tablet PO SCH ×2 (07:40→19:31)
[2018-12-01] MEDS: pregabalin 75mg capsule PO SCH ×2 (07:40→19:31)
[2018-12-01] MEDS: lactobacillus rhamnosus 10,000 MMU CELLS/CAPSULE PO SCH ×2 (07:40→19:31)
[2018-12-01] MEDS: emollient combination-Eucerin 250 ML LOTION TP SCH ×2 (08:36→19:33)
--- NOTE | 2018-12-01 09:06 | NUR ---
Follow up: patient met at bedside to be given written summary of verbal education re: how to order off the menu, current diet order, food available, food preferences, etc; pt encouraged to call RD instead of kitchen for food. Pt discouraged from keeping perishable food at bedside, all of the above d/w patient, RN, viscose cellar charge hand, floor space allocator, dietary. Addendum: 12/01/18 at [address] Amended: Links added.
--- NOTE | 2018-12-01 10:32 | NUR ---
Problems reprioritized. Patient report given, questions answered & plan of care reviewed with VERENA FLETCHER. Addendum: 12/01/18 at 1050 by Jade Velasquez RN WRONG NURSE, REPORTED OFF TO VICKIE FLETCHER
[2018-12-01 10:51] VITALS: BP 102/68
--- NOTE | 2018-12-01 10:52 | NUR ---
Patient in room [facility]. I have received report from Paige and had the opportunity to ask questions and assume patient care.
[2018-12-01] MEDS: traMADol 50MG tablet PO PRN (11:21)
[2018-12-01] MEDS: CITALOpram 10mg tablet PO SCH (15:11)
--- NOTE | 2018-12-01 18:00 | NUR ---
Patient in room [facility]. I have received report from Rosangela FLETCHER and had the opportunity to ask questions and assume patient care.
--- NOTE | 2018-12-01 18:18 | NUR ---
Problems reprioritized. Patient report given, questions answered & plan of care reviewed with eddi.
[2018-12-01 20:00] VITALS: BP 97/60
[2018-12-02] MEDS: traMADol 50MG tablet PO PRN ×2 (02:36→14:45)
--- NOTE | 2018-12-02 06:29 | NUR ---
Problems reprioritized. Patient report given, questions answered & plan of care reviewed with Bill RN.
--- NOTE | 2018-12-02 06:38 | NUR ---
Patient in room [facility]. I have received report from Christ FLETCHER and had the opportunity to ask questions and assume patient care.
[2018-12-02 07:00] VITALS: BP 106/71
[2018-12-02] MEDS: lactose-reduced food (Ensure Enlive) - 237ml bottle PO SCH (07:30)
[2018-12-02] MEDS: furosemide 40mg tablet PO SCH ×3 (09:24→21:00)
[2018-12-02] MEDS: spironolactone 50 MG tablet PO SCH ×2 (09:24→20:00)
[2018-12-02] MEDS: lactobacillus rhamnosus 10,000 MMU CELLS/CAPSULE PO SCH ×2 (09:25→19:59)
[2018-12-02] MEDS: CITALOpram 10mg tablet PO SCH (09:25)
[2018-12-02] MEDS: midodrine 5mg tablet PO SCH ×4 (09:25→23:14)
[2018-12-02] MEDS: rifaximin 550mg tablet PO SCH ×2 (09:26→20:00)
[2018-12-02] MEDS: pregabalin 75mg capsule PO SCH ×2 (09:26→19:59)
[2018-12-02] MEDS: emollient combination-Eucerin 250 ML LOTION TP SCH ×2 (09:34→20:01)
[2018-12-02 11:31] VITALS: BP 100/68
--- NOTE | 2018-12-02 18:30 | NUR ---
Patient in room [facility]. I have received report from Bill FLETCHER and had the opportunity to ask questions and assume patient care.
--- NOTE | 2018-12-02 18:30 | NUR ---
Problems reprioritized. Patient report given, questions answered & plan of care reviewed with Christ FLETCHER.
[2018-12-02 20:00] VITALS: BP 98/63
[2018-12-02] MEDS: polyethylene glycol 3350 17gm powd pack PO SCH (21:40)
[2018-12-02] MEDS: traZODone 50mg tablet PO SCH (21:40)
[2018-12-02] MEDS: acetaminophen 325mg tablet PO PRN (21:40)
[2018-12-03] VITALS: BP 85/54
[2018-12-03] MEDS: traMADol 50MG tablet PO PRN ×2 (03:20→15:12)
--- NOTE | 2018-12-03 06:20 | NUR ---
Problems reprioritized. Patient report given, questions answered & plan of care reviewed with Venus FLETCHER.
--- NOTE | 2018-12-03 06:20 | NUR ---
Patient in room [facility]. I have received report from Beatrice FLETCHER and had the opportunity to ask questions and assume patient care.
[2018-12-03 06:55] VITALS: BP 96/64
[2018-12-03] MEDS: lactose-reduced food (Ensure Enlive) - 237ml bottle PO SCH (07:30)
[2018-12-03] MEDS: spironolactone 50 MG tablet PO SCH ×2 (08:00→20:00)
[2018-12-03] MEDS: furosemide 40mg tablet PO SCH ×3 (08:00→20:36)
[2018-12-03] MEDS: midodrine 5mg tablet PO SCH ×2 (08:18→15:12)
[2018-12-03] MEDS: rifaximin 550mg tablet PO SCH ×2 (08:18→20:21)
[2018-12-03] MEDS: lactobacillus rhamnosus 10,000 MMU CELLS/CAPSULE PO SCH ×2 (08:18→20:23)
[2018-12-03] MEDS: CITALOpram 10mg tablet PO SCH (08:18)
[2018-12-03] MEDS: emollient combination-Eucerin 250 ML LOTION TP SCH ×2 (08:19→20:35)
[2018-12-03] MEDS: pregabalin 75mg capsule PO SCH ×2 (08:19→20:23)
[2018-12-03] MEDS: acetaminophen 325mg tablet PO PRN (08:54)
[2018-12-03 13:16] VITALS: BP 93/65
--- NOTE | 2018-12-03 14:29 | NUR ---
Dr. Mayers informed that lasix and aldactone held due to BP 96/64 this AM. No new orders at this time.
[2018-12-03 18:00] VITALS: BP 92/57
--- NOTE | 2018-12-03 18:40 | NUR ---
Problems reprioritized. Patient report given, questions answered & plan of care reviewed with Alannah FLETCHER.
--- NOTE | 2018-12-03 18:48 | NUR ---
Patient in room [facility]. I have received report from Margarita FLETCHER and had the opportunity to ask questions and assume patient care. Addendum: 12/03/18 at [address] RN Amended: Links added.
[2018-12-03 19:45] VITALS: BP 92/57
--- NOTE | 2018-12-03 20:00 | NUR ---
pt given hs meds tolerated well. then afterwards encouraged to get up and walk in the joseph.
[2018-12-03] MEDS: polyethylene glycol 3350 17gm powd pack PO SCH (20:22)
[2018-12-03] MEDS: traZODone 50mg tablet PO SCH (20:23)
--- NOTE | 2018-12-03 22:00 | NUR ---
resting eyes closed without changes.
[2018-12-04] MEDS: midodrine 5mg tablet PO SCH ×3 (00:25→16:18)
[2018-12-04] MEDS: Melatonin 3mg tablet PO PRN (00:29)
[2018-12-04 00:37] VITALS: BP 93/59
--- NOTE | 2018-12-04 00:38 | NUR ---
PT AWAKE EATING COOKIES AND CHEESE AND GIVEN MELATONIN FOR SLEEP. PT STATED DOZED OFF EARLIER NOW AWAKE AND UNABLE TO SLEEP.
--- NOTE | 2018-12-04 02:30 | NUR ---
resting eyes closed without s&s of distress at this time.
--- NOTE | 2018-12-04 04:00 | NUR ---
resting eyes closed no changes.
[2018-12-04] MEDS: traMADol 50MG tablet PO PRN ×2 (04:47→16:55)
--- NOTE | 2018-12-04 05:04 | NUR ---
pt medicated for pain with ultram
--- NOTE | 2018-12-04 06:32 | NUR ---
Problems reprioritized. Patient report given, questions answered & plan of care reviewed with Venus Gatica. Addendum: 12/04/18 at [address] RN Amended: Links added.
[2018-12-04 07:11] VITALS: BP 91/63
[2018-12-04] MEDS: lactose-reduced food (Ensure Enlive) - 237ml bottle PO SCH (07:15)
[2018-12-04] MEDS: furosemide 40mg tablet PO SCH ×3 (07:15→21:00)
[2018-12-04] MEDS: spironolactone 50 MG tablet PO SCH ×2 (07:15→19:56)
[2018-12-04] MEDS: pregabalin 75mg capsule PO SCH ×2 (08:20→19:58)
[2018-12-04] MEDS: CITALOpram 10mg tablet PO SCH (08:21)
[2018-12-04] MEDS: rifaximin 550mg tablet PO SCH ×2 (08:21→19:58)
[2018-12-04] MEDS: lactobacillus rhamnosus 10,000 MMU CELLS/CAPSULE PO SCH ×2 (08:21→19:57)
[2018-12-04] MEDS: emollient combination-Eucerin 250 ML LOTION TP SCH ×2 (08:22→20:00)
--- NOTE | 2018-12-04 08:46 | NUR ---
Patient in room [facility]. I have received report from Alannah FLETCHER and had the opportunity to ask questions and assume patient care. Addendum: 12/04/18 at 0847 by Venus Loredo RN Wrong time charted above, disregard. Correct time 0630.
[2018-12-04 11:26] VITALS: BP 98/61
--- NOTE | 2018-12-04 18:06 | NUR ---
Problems reprioritized. Patient report given, questions answered & plan of care reviewed with Ced FLETCHER.
[2018-12-04 18:30] VITALS: BP 93/56
--- NOTE | 2018-12-04 20:00 | NUR ---
PT VOIDS INDEPENDENTLY IN BATHROOM
[2018-12-04] MEDS: polyethylene glycol 3350 17gm powd pack PO SCH (22:32)
[2018-12-04] MEDS: traZODone 50mg tablet PO SCH (22:33)
[2018-12-05] VITALS: BP 96/53
[2018-12-05] MEDS: midodrine 5mg tablet PO SCH ×4 (00:07→23:58)
[2018-12-05] MEDS: traMADol 50MG tablet PO PRN ×2 (05:13→18:21)
--- NOTE | 2018-12-05 06:10 | NUR ---
Problems reprioritized. Patient report given, questions answered & plan of care reviewed with SHELIA. Addendum: 12/05/18 at 0610 by Arnold Carlson RN Amended: Links added.
--- NOTE | 2018-12-05 06:11 | NUR ---
Patient in room [facility]. I have received report from Ced FLETCHER and had the opportunity to ask questions and assume patient care.
[2018-12-05 07:00] VITALS: BP 99/63
[2018-12-05] MEDS: lactose-reduced food (Ensure Enlive) - 237ml bottle PO SCH (07:30)
[2018-12-05] MEDS: furosemide 40mg tablet PO SCH ×3 (08:00→21:00)
[2018-12-05] MEDS: spironolactone 50 MG tablet PO SCH ×2 (08:00→20:00)
[2018-12-05] MEDS: CITALOpram 10mg tablet PO SCH (08:26)
[2018-12-05] MEDS: emollient combination-Eucerin 250 ML LOTION TP SCH ×2 (08:26→19:43)
[2018-12-05] MEDS: pregabalin 75mg capsule PO SCH ×2 (08:26→19:39)
[2018-12-05] MEDS: rifaximin 550mg tablet PO SCH ×2 (08:26→19:33)
[2018-12-05] MEDS: lactobacillus rhamnosus 10,000 MMU CELLS/CAPSULE PO SCH ×2 (08:27→19:36)
--- NOTE | 2018-12-05 11:00 | NUR ---
Patient refused 11:00am vital signs
[2018-12-05] MEDS: acetaminophen 325mg tablet PO PRN (14:52)
--- NOTE | 2018-12-05 18:30 | NUR ---
Patient in room [facility]. I have received report from Juan Carlos FLETCHER and had the opportunity to ask questions and assume patient care. Patient resting in bed, finishing dinner, will continue to monitor.
--- NOTE | 2018-12-05 18:44 | NUR ---
Problems reprioritized. Patient report given, questions answered & plan of care reviewed with Tova FLETCHER.
[2018-12-05 19:38] VITALS: BP 103/68
[2018-12-05 20:00] VITALS: BP 101/62
[2018-12-05] MEDS: polyethylene glycol 3350 17gm powd pack PO SCH (21:00)
[2018-12-05] MEDS: traZODone 50mg tablet PO SCH (23:58)
[2018-12-06] VITALS: BP 86/55
--- NOTE | 2018-12-06 06:41 | NUR ---
Patient in room [facility]. I have received report from Tova FLETCHER and had the opportunity to ask questions and assume patient care.
[2018-12-06 07:00] VITALS: BP 92/64
[2018-12-06] MEDS: lactose-reduced food (Ensure Enlive) - 237ml bottle PO SCH (07:30)
[2018-12-06] MEDS: furosemide 40mg tablet PO SCH ×2 (08:00→13:00)
[2018-12-06] MEDS: pregabalin 75mg capsule PO SCH (08:00)
[2018-12-06] MEDS: spironolactone 50 MG tablet PO SCH (08:00)
--- NOTE | 2018-12-06 08:56 | NUR ---
Ibis reported pt requesting pitchers of ice, salt packets are in pt's stashed foods at the bedside, and pt is c/o cottage cheese, fruit, and turkey that has been in her room is rejected for storage in staff/unit refrigerator since it has been in pt room. Ibis also reports large amounts of food is in pt's side table and closet. Jessie Carter, director, Marisol, aadc plans staff officer, myself and CHANCE Rangel spoke w/ pt at bedside regarding above issues. Pt's side table and closet have multiple snack foods such as cookies, candy, cake, brownies that are contained in ziplocked bags, along with large quantities of potato chips, juice boxes, snack chips, other snack items in original unopened packaging. She has a pitcher of ice converted to a makeshift "ice chest" as juice boxes and packaged string cheese are being chilled. 7 containers of opened, but covered, beverages are on the overbed table along with more candy, snacks, and her breakfast. Pt called a "Yenifer Jay Jay" to be on speaker phone during our discussion regarding the type and quantity of foods at the bedside and in the staff refrigerator. Educational Consultant discussed w/ pt extremely large amounts of sodium in the foods she is "snacking" on. Pt persistently remarks about her weight dropped to 105 after gastric bypass and she is in "full control" of managing her diet, as she is now up to 129lb. She stated the "proof"that she isn't eating too much sodium is that she does not need a paracentesis, and not having swollen feet. Educational Consultant recommends Daily Weights to begin, and pt is aware.
[2018-12-06] MEDS: rifaximin 550mg tablet PO SCH (09:35)
[2018-12-06] MEDS: midodrine 5mg tablet PO SCH (09:35)
[2018-12-06] MEDS: CITALOpram 10mg tablet PO SCH (09:35)
[2018-12-06] MEDS: emollient combination-Eucerin 250 ML LOTION TP SCH (09:36)
[2018-12-06] MEDS: lactobacillus rhamnosus 10,000 MMU CELLS/CAPSULE PO SCH (09:36)
[2018-12-06] MEDS: traMADol 50MG tablet PO PRN (09:41)
[2018-12-06 11:00] VITALS: BP 93/73
--- NOTE | 2018-12-06 11:15 | NUR ---
reassessment: Pt PO 100% regular meals w/ double proteins meeting needs. RD, cupola charger, pt RN, and surgical linoleum floor installer met w/ pt at bedside since received salt from unknown source besides dietary. Pt is hoarding food and received large bag of chips hidden in drawer from some outside source as well. Pt storing string cheese in cup of ice. Clinical team explained to pt servsafe food standards and proper food storage procedures; pt extra food was tossed. RD has reinforced multiple times to pt proper diet guidelines and continues to honor pt food preferences. Pt continues to report "forgetting" after complaining on inaccurate tray even though has copy of exact menu she keeps which matches what she receives on meals. Pt reports has no fluid build up in abdomen and pt has gained ~20# roughly since initial admit underweight. Clinical team reinforced pt has no fluid build up because we are following proper clinical diet guidelines. Pending possible d/c today per RN; 2 accepting facilities per social service note. [facility] 12/04. No nutrition concerns. Will continue to monitor. Rec: 1. Continue regular diet with no salt packets 2. [place] at breakfast, tuna salad in a bowl with lunch, chicken salad in a bowl with dinner; Extra sugar TID; no margarine, butter only x3max w/ meals; double protein TID 3. bariatric MVI for wound healing/taisha-en-y needs 4. routine bowel care 5. weekly wts 6. honor pt protein food preferences; premier protein from outside Addendum: 12/06/18 at [address] Amended: Links added.
[2018-12-06] MEDS ORDERED: FURO40TA4 PO (12:02)
[2018-12-06] MEDS ORDERED: TRAZ-251 PO (12:02)
[2018-12-06] MEDS ORDERED: LACT10SO32 PO (12:02)
[2018-12-06] MEDS ORDERED: CITA10TA9 PO (12:02)
[2018-12-06] MEDS ORDERED: LYR75C PO (12:02)
[2018-12-06] MEDS ORDERED: SPIR50TA5 PO (12:02)
[2018-12-06] MEDS ORDERED: TRAM50TA2 PO (12:02)
[2018-12-06] MEDS ORDERED: RIFA550T PO (12:02)
[2018-12-06] MEDS ORDERED: MIDO5TAB4 PO (12:02)
[2018-12-06] MEDS: acetaminophen 325mg tablet PO PRN (14:10)
--- NOTE | 2018-12-06 14:47 | NUR ---
Discharge instructions were given to patient, patient verbalized understanding of all instructions made. panel lay up worker Guadalupe also came by to provide additional instruction. Patient's own meds stored in the pharmacy was returned to patient. Patient claimed that she has a bottle of Tylenol that she gave to the staff while she was at PCU unit. I called PCU, Christa FLETCHER said they do not have the possession of Tylenol and I also called pharmacy department, the staff at pharmacy said that they do not have the Tylenol. Patient was notified about the Tylenol that it was not in the pharmacy nor at the PCU. Patient was given Tylenol for her headache as requested. Patient's new prescription was delivered at bedside by [facility].
[2018-12-06] MEDS ORDERED: traZODone 50mg tablet PO SCH (22:00)
== END 2018-12-06 14:55 | disposition home or self-care (01) | DRG 871 ==
LOC: ER 14:58 → PCU 3S 20:12 → SUR 3N 11-21 16:40
PROVIDERS: ADMIT Hospitalist; ATTEND Family Medicine
PROC: 0W9G3ZZ Drainage of Peritoneal Cavity, Percutaneous Approach (ICD-10-PCS; principal; 2018-10-24)
PROC: CB121ZZ Planar Nuclear Medicine Imaging of Lungs and Bronchi using Technetium 99m (Tc-99m) (ICD-10-PCS; 2018-10-24)
PROC: 02HV33Z Insertion of Infusion Device into Superior Vena Cava, Percutaneous Approach (ICD-10-PCS; 2018-10-24)
PROC: 4A02X4A Measurement of Cardiac Electrical Activity, Guidance, External Approach (ICD-10-PCS; 2018-10-24)
PROC: B548ZZA Ultrasonography of Superior Vena Cava, Guidance (ICD-10-PCS; 2018-10-24)
PROC: 0W9G3ZZ Drainage of Peritoneal Cavity, Percutaneous Approach (ICD-10-PCS; 2018-10-27)
PROC: 0W9G3ZZ Drainage of Peritoneal Cavity, Percutaneous Approach (ICD-10-PCS; 2018-11-02)
PROC: 0W9G3ZZ Drainage of Peritoneal Cavity, Percutaneous Approach (ICD-10-PCS; 2018-11-10)
DX: A41.9 Sepsis, unspecified organism (principal); R65.21 Severe sepsis with septic shock; E43 Unspecified severe protein-calorie malnutrition; J18.9 Pneumonia, unspecified organism; L03.116 Cellulitis of left lower limb; N39.0 Urinary tract infection, site not specified; L02.419 Cutaneous abscess of limb, unspecified; E87.1 Hypo-osmolality and hyponatremia; K76.6 Portal hypertension; N17.9 Acute kidney failure, unspecified; L03.115 Cellulitis of right lower limb; L97.919 Non-pressure chronic ulcer of unspecified part of right lower leg with unspecified severity; K70.31 Alcoholic cirrhosis of liver with ascites; N18.3 Chronic kidney disease, stage 3 (moderate); B96.1 Klebsiella pneumoniae [K. pneumoniae] as the cause of diseases classified elsewhere; K72.90 Hepatic failure, unspecified without coma; R32 Unspecified urinary incontinence; Z88.8 Allergy status to other drugs, medicaments and biological substances; B96.20 Unspecified Escherichia coli [E. coli] as the cause of diseases classified elsewhere; E86.9 Volume depletion, unspecified; F10.20 Alcohol dependence, uncomplicated; F12.90 Cannabis use, unspecified, uncomplicated; F32.9 Major depressive disorder, single episode, unspecified; S80.921A Unspecified superficial injury of right lower leg, initial encounter; X58.XXXA Exposure to other specified factors, initial encounter; G62.9 Polyneuropathy, unspecified; I48.91 Unspecified atrial fibrillation; K59.00 Constipation, unspecified; T50.0X5A Adverse effect of mineralocorticoids and their antagonists, initial encounter; R21 Rash and other nonspecific skin eruption; L29.9 Pruritus, unspecified; Z66 Do not resuscitate; E87.70 Fluid overload, unspecified; Z79.899 Other long term (current) drug therapy; Y92.89 Other specified places as the place of occurrence of the external cause; Y93.89 Activity, other specified; Y99.8 Other external cause status
CPT/HCPCS: 36415; 36569; 49083; 71045; 74176; 76937; 78582; 80048; 80053; 80202; 80320; 81001; 82140; 82948; 83605; 83735; 84100; 84145; 84443; 85025; 85610; 85730; 86803; 87040; 87070; 87077; 87081; 87088; 87186; 89051; 90732; 93005; 93306; 93970; 96365; 96366; 96368; 96375; 97110; 97116; 97161; 97530; 99291; A9539; A9540; G0378; J0696; J1170; J1650; J1940; J2270; J2405; J2543; J2765; J3370; J3490; J7030; J7050; P9045; P9047; Q0163